=== PATIENT | female | born 1980 | race Caucasian/White ===

== ENCOUNTER 2016-12-11 12:35 | Emergency (ER) | payer MEDICAID ==
[2016-12-11 12:59] VITALS: BP 122/89; PULSE 88; RESP 20; TEMP 98.5; O2SAT 95
== END 2016-12-11 14:10 | disposition home or self-care (01) ==
LOC: C.ER 12:35
DX: S62.637A Displaced fracture of distal phalanx of left little finger, initial encounter for closed fracture (principal); W22.8XXA Striking against or struck by other objects, initial encounter

== ENCOUNTER 2018-06-22 08:26 | Inpatient (IN) | payer MEDICAID, OTHER ==
--- NOTE | 2018-06-22 09:21 | C.PDOC ---
History Of Present Illness 38 years old female with no PMHx presents to ED for complaints of sharp epigastric pain associated with nausea, vomiting (non bloody, non-bilious), and some diarrhea. Patient states she last vomited this morning. Denies fever, chill s, or any other complaints. Patient also reports symptoms began after she ate Blimpies. Time Seen by Provider: 06/22/18 08:52 Chief Complaint (Nursing): Abdominal Pain History Per: Patient History/Exam Limitations: no limitations Onset/Duration Of Symptoms: Days Current Symptoms Are (Timing): Still Present Location Of Pain/Discomfort: Epigastric Radiation Of Pain To:: None Quality Of Discomfort: Sharp Associated Symptoms: Nausea, Vomiting, Diarrhea. denies: Fever, Chills, Urinary Symptoms Exacerbating Factors: None Alleviating Factors: None Last Bowel Movement: Today Recent travel outside of the [place]: No Abnormal Vaginal Bleeding: No Past Medical History Reviewed: Historical Data, Nursing Documentation, Vital Signs Vital Signs: Last Vital Signs Temp 98 F 06/22/18 08:33 Pulse 71 06/22/18 08:33 Resp 20 06/22/18 08:33 BP 109/72 06/22/18 08:33 Pulse Ox 100 06/22/18 08:33 - Medical History PMH: No Chronic Diseases Surgical History: No Surg Hx Family History: States: Unknown Family Hx - Social History Hx Tobacco Use: No Hx Alcohol Use: No Hx Substance Use: No - Immunization History Hx Tetanus Toxoid Vaccination: No Hx Influenza Vaccination: No Hx Pneumococcal Vaccination: No Review Of Systems Constitutional: Negative for: Fever, Chills Cardiovascular: Negative for: Chest Pain Respiratory: Negative for: Shortness of Breath Gastrointestinal: Positive for: Nausea, Vomiting, Abdominal Pain (Epigastric ), Diarrhea. Negative for: Constipation Skin: Negative for: Rash Neurological: Negative for: Weakness, Numbness Physical Exam - Physical Exam Appears: Non-toxic, Other (Morbidly obese, uncomfortable) Skin: Normal Color, Warm, Dry, No Rash Head: Atraumatic, Normacephalic Eye(s): bilateral: Normal Inspection, PERRL, EOMI Oral Mucosa: Dry Neck: Normal ROM, Supple Chest: Symmetrical, No Tenderness Cardiovascular: Rhythm Regular, No Murmur Respiratory: Normal Breath Sounds, No Rales, No Rhonchi, No Wheezing Gastrointestinal/Abdominal: Soft, Tenderness (Epigastric RUQ ), Other (Positive Castellon's sign ) Back: Normal Inspection, No CVA Tenderness Extremity: Normal ROM Extremity: Bilateral: Atraumatic, Normal Color And Temperature, Normal ROM Pulses: Left Radial: Normal, Right Radial: Normal Neurological/Psych: Oriented x3, Normal Speech Gait: Steady ED Course And Treatment - Laboratory Results Result Diagrams: 06/22/18 11:10 06/22/18 11:10 O2 Sat by Pulse Oximetry: 100 (RA) Pulse Ox Interpretation: Normal - CT Scan/US Abdomen US Other Rad Studies (CT/US): Read By Radiologist, Radiology Report Reviewed CT/US Interpretation: Impression: Cholelithiasis and sludge in the gallbladder with associated positive sonographic Castellon's sign. Normal wall thickness. No gross wall edema. These findings are equivocal and may represent a possible cholecystitis. Clinical correlation. Hepatomegaly with increased echogenicity of the hepatic parenchymal cortex suggestive for fatty infiltration versus hepatic parenchymal disease. Clinical correlation. Dilated common bile duct measuring up to 1.2 centimeters. Clinical correlation. Pancreas not well visualized. Medical Decision Making Medical Decision Making: Plan: * Urinalysis Progress: 12:05: Patient currently pain-free and eating Doritos in ER. 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 Disposition Discussed With DrSelena: Marc Fontanez Doctor Will See Patient In The: Hospital - Disposition Disposition: HOSPITALIZED Disposition Time: 13:00 Condition: FAIR - Clinical Impression Clinical Impression: Gallstone pancreatitis - PA / CLINICAL CASE MANAGER / Resident Statement MD/DO has reviewed & agrees with the documentation as recorded. - Scribe Statement The provider has reviewed the documentation as recorded by the Joseiblara Fontana All medical record entries made by the Pedro were at my direction and personally dictated by me. I have reviewed the chart and agree that the record accurately reflects my personal performance of the history, physical exam, medical decision making, and the department course for this patient. I have also personally directed, reviewed, and agree with the discharge instructions and disposition.
[2018-06-22 11:15] LABS: BASO % 0.2 % (0.0-2.0); EOS % 0.2 % (0.0-4.0); HEMOGLOBIN 11.9 g/dL (11.0-16.0); LYMPH # 0.8 K/uL (1.0-4.3); LYMPH % 10.2 % (20.0-40.0); MEAN CELL VOLUME 79.7 fL (81.0-99.0); MEAN CORPUSCULAR HEMOGLOBIN 25.3 pg (27.0-31.0); MEAN CORPUSCULAR HGB CONC 31.8 g/dL (33.0-37.0); MEAN PLATELET VOLUME 7.9 fL (7.2-11.7); MONO # 0.5 K/uL (0.0-0.8); MONO % 5.7 % (0.0-10.0); NEUT # 6.6 K/uL (1.8-7.0); NEUT % 83.7 % (50.0-75.0); RBC 4.69 Mil/uL (3.80-5.20); RED CELL DISTRIBUTION WIDTH 14.5 % (11.5-14.5); WHITE BLOOD COUNT 7.9 K/uL (4.8-10.8)
[2018-06-22 11:32] LABS: ALB/GLOB RATIO 1.1 (1.0-2.1); ALBUMIN 4.4 g/dL (3.5-5.0); ALT/SGPT 148 U/L (9-52); AST/SGOT 218 U/L (14-36); BLOOD UREA NITROGEN 15 mg/dL (7-17); CALCIUM 9.3 mg/dl (8.6-10.4); GFR NON-AFRICAN AMERICAN > 60
[2018-06-22 12:01] LABS: LIPASE 35152 U/L (23-300)
--- NOTE | 2018-06-22 12:07 | US ---
Right upper quadrant abdominal ultrasound HISTORY: Right upper abdominal pain. COMPARISON: None available. TECHNIQUE: Real-time sonography was performed through the right upper quadrant of the abdomen. Findings: Liver: Enlarged measuring 18.3 centimeters in length. Increased echogenicity of the hepatic parenchymal cortex suggestive for fatty infiltration versus hepatic parenchymal disease. Clinical correlation. Cholelithiasis and sludge in the gallbladder. Normal wall thickness of 1.5 millimeters. Positive sonographic Castellon's sign. Common bile duct measures 1.2 centimeters, prominent. Limited visualization of the pancreas. Visualized aorta and IVC are preserved. Right kidney: 11.8 x 5.5 x 5.7 centimeters. No calculi or hydronephrosis. Impression: Cholelithiasis and sludge in the gallbladder with associated positive sonographic Castellon's sign. Normal wall thickness. No gross wall edema. These findings are equivocal and may represent a possible cholecystitis. Clinical correlation. Hepatomegaly with increased echogenicity of the hepatic parenchymal cortex suggestive for fatty infiltration versus hepatic parenchymal disease. Clinical correlation. Dilated common bile duct measuring up to 1.2 centimeters. Clinical correlation. Pancreas not well visualized.
[2018-06-22 12:41] LABS: SQUAMOUS EPITHIAL 10 /hpf (0-5); URINE BACTERIA RARE (<OCC); URINE BILIRUBIN NEGATIVE (NEGATIVE); URINE BLOOD NEGATIVE (NEGATIVE); URINE CLARITY Clear (Clear); URINE COLOR Amber (YELLOW); URINE GLUCOSE (UA) NORMAL (Normal); URINE LEUKOCYTE ESTERASE NEG Leu/uL (Negative); URINE PROTEIN NEGATIVE (NEGATIVE)
[2018-06-22] MEDS ORDERED: Sodium Chloride 0.9% 1,000 ML IV SCH ×3 (13:00→13:37)
--- NOTE | 2018-06-22 13:15 | CP.PCM.HP ---
<Josselyn Tomas E - Last Filed: 06/22/18 18:10> History of Present Illness - History of Present Illness History of Present Illness: CC: Epigastric Pain HPI: Patient is a 38 year old female with no past medical history, who presents to the ED with complaints of epigastric pain that started 4 days ago. Patient reports that the pain started for her right lower back/flank area/ RUQ radiating to the epigastric region. Patient describes that pain as a 8/10 sharp, pressure- like pain that is exacerbated with belching and greasy or fried food and mildly alleviated with vomiting. Patient states that she took Gas-X last week , which provided no relief. Patient admits to associated symptom of non-bilious, non-bloody vomit 3-4x per day for the past 3-4 days as well as chills and subjective fever that started yesterday. Patient admits to mild SOB and dizziness but denies chest pain, palpitations, diarrhea, hematochezia or urinary symptoms and recent travels Code Status: Full Code PMD: None PMHx: None PSHx: 2 (2002 and FHx: - Mother: 72, DM, HTN, HLD and Breast Ca - Father when patient was age 5 - Maternal Grandfather: Gastric Ca - Maternal Aunt: CVA Medications: None Allergies: Denies Social Hx: Lives with mother and two daughters. Works at [employer] in [place]. Denies any former or current use of tobacco, illicit drugs and ETOH 38 years old female with no PMHx presents to ED for complaints of sharp epigastric pain associated with nausea, vomiting (non bloody, non-bilious), and some diarrhea. Patient states she last vomited this morning. Denies fever, chills, or any other complaints. Patient also reports symptoms began after she ate Blimpies. Present on Admission - Present on Admission Any Indicators Present on Admission: No Review of Systems - Constitutional Constitutional: Chills, Fever. absent: Excessive Sweating, Headache, Increased Appetite, Weight Gain, Weight Loss, Weakness - EENT Eyes: absent: Blurred Vision, Change in Vision Ears: Dizziness - Cardiovascular Cardiovascular: Dyspnea. absent: Chest Pain, Edema, Palpitations, Pedal Edema, Radiating Pain - Respiratory Respiratory: Dyspnea. absent: Cough, Hemoptysis, Wheezing, Snoring - Gastrointestinal Gastrointestinal: Abdominal Pain, Nausea, Vomiting. absent: Change in Stool Character, Constipation, Diarrhea, Dysphagia, Fecal Incontinence, Hematemesis, Hematochezia, Loose Stools - Genitourinary Genitourinary: Flank Pain. absent: Difficulty Urinating, Hematuria, Pyuria - Reproductive: Female Reproductive:Female: Normal Menses - Musculoskeletal Musculoskeletal: absent: Back Pain - Neurological Neurological: Dizziness - Psychiatric Psychiatric: absent: Anxiety, Change in Appetite - Endocrine Endocrine: absent: Fatigue, Palpitations Past Patient History - Infectious Disease Hx of Infectious Diseases: None - Past Social History Smoking Status: Never Smoked - PSYCHIATRIC Hx Substance Use: No - SURGICAL HISTORY Hx Surgeries: No - ANESTHESIA Hx Anesthesia: No Hx Anesthesia Reactions: No Meds Allergies/Adverse Reactions: Allergies Allergy/AdvReac Type Severity Reaction Status Date / Time No Known Allergies Allergy Verified 06/22/18 08:36 Physical Exam - Constitutional Appears: Non-toxic, No Acute Distress - Head Exam Head Exam: ATRAUMATIC, NORMAL INSPECTION - Eye Exam Eye Exam: EOMI, Normal appearance, PERRL - ENT Exam ENT Exam: Mucous Membranes Moist - Respiratory Exam Respiratory Exam: Clear to Auscultation Bilateral, NORMAL BREATHING PATTERN. absent: Prolonged Expiratory Phase, Rhonchi, Wheezes, Respiratory Distress - Cardiovascular Exam Cardiovascular Exam: REGULAR RHYTHM, +S1, +S2. absent: Tachycardia - GI/Abdominal Exam GI & Abdominal Exam: Normal Bowel Sounds, Soft, Tenderness Additional comments: Epigastric tenderness Positive castellon sign - Extremities Exam Extremities exam: Positive for: normal inspection. Negative for: calf tenderness, pedal edema - Back Exam Back exam: CVA tenderness (R). absent: CVA tenderness (L) Additional comments: Mild R CVA tenderness - Psychiatric Exam Psychiatric exam: Normal Affect - Skin Skin Exam: Normal Color Results - Vital Signs Recent Vital Signs: Last Vital Signs Temp 97.6 F 06/22/18 13:08 Pulse 64 06/22/18 13:08 Resp 18 06/22/18 13:08 BP 115/75 06/22/18 13:08 Pulse Ox 97 06/22/18 13:08 - Labs Result Diagrams: 06/22/18 11:10 06/22/18 11:10 Labs: Laboratory Results - last 24 hr 06/22/18 06/22/18 06/22/18 11:10 11:10 12:17 WBC 7.9 RBC 4.69 Hgb 11.9 Hct 37.4 MCV 79.7 L MCH 25.3 L MCHC 31.8 L RDW 14.5 Plt Count 275 MPV 7.9 Neut % (Auto) 83.7 H Lymph % (Auto) 10.2 L [place] % (Auto) 5.7 Eos % (Auto) 0.2 Baso % (Auto) 0.2 Neut # (Auto) 6.6 Lymph # (Auto) 0.8 L [place] # (Auto) 0.5 Eos # (Auto) 0.0 Baso # (Auto) 0.0 Sodium 138 Potassium 4.1 Chloride 106 Carbon Dioxide 25 Anion Gap 12 BUN 15 Creatinine 0.6 L Est GFR ( Amer) > 60 Est GFR (Non-Af Amer) > 60 Random Glucose 150 H Calcium 9.3 Total Bilirubin 2.3 H AST 218 H ALT 148 H D Alkaline Phosphatase 184 H Total Protein 8.5 H Albumin 4.4 Globulin 4.0 H Albumin/Globulin Ratio 1.1 Lipase 93251 H Urine Color Ruma Urine Clarity Clear Urine pH 5.0 Ur Specific [place] 1.016 Urine Protein Negative Urine Glucose (UA) Normal Urine Ketones Negative Urine Blood Negative Urine Nitrate Negative Urine Bilirubin Negative Urine Urobilinogen 4.0 H Ur Leukocyte Esterase Neg Urine WBC (Auto) 4 Urine RBC (Auto) 1 Ur Squamous Epith Cells 10 H Urine Bacteria Rare Assessment & Plan (1) Gallstone pancreatitis Assessment and Plan: Consultations: GI: Dr. Almanza---> Help appreciated * Management as per recommendation General Surgery, Dr. Pierce---> Help appreciated * Management as per recommendation Imaging: * Abdomen US: Cholelithiasis and sludge in the gallbladder with associated positive sonographic Castellon's sign. Normal wall thickness. No gross wall edema. These findings are equivocal and may represent a possible cholecystitis. Clinical correlation. Hepatomegaly with increased echogenicity of the hepatic parenchymal cortex suggestive for fatty infiltration versus hepatic parenchymal disease. Clinical correlation.Dilated common bile duct measuring up to 1.2 centimeters. Clinical correlation. Pancreas not well visualized. * Abdomen/Pelvis CT: Prominent liver with diffuse fatty infiltration. Distended gallbladder with possible sludge. Prominently thickened and heterogeneous pancreas with adjacent peripancreatic fat stranding suggestive for acute pa ncreatitis. Right kidney: 4 millimeter lower pole nonobstructive calculus. Left Kidney: 3 millimeter upper pole nonobstructive calculus. Mild fullness of the left renal collecting system. Prominence of the left adnexa measuring up to 4.4 centimeters. Labs on admission: -Total Bili: 2.3 -AST/ALT: 218/148 -Alkaline Phosphate: 184 -Lipase: 35, 152 Management: * NPO expect for meds * NS @ 150mls/hr * Toradol 15mg IV Q6H PRN (Moderate Pain) * Toradol 30mg IV Q6H PRN (Severe Pain) * Zosyn 3.375gm Q6H * Lactobacillius 1 tab PO BID Status: Acute (2) Prophylactic measure Assessment and Plan: GI: Protonix 40mg IV daily DVT: SCDs, Chemical anticoagulation in anticipation for any surgical intervention All plans and management discussed with Dr. Elder Status: Acute <Juan Elder - Last Filed: 06/22/18 18:56> Results - Vital Signs Recent Vital Signs: Last Vital Signs Temp 97.6 F 06/22/18 13:08 Pulse 80 06/22/18 15:54 Resp 18 06/22/18 15:54 BP 127/77 06/22/18 15:54 Pulse Ox 100 06/22/18 18:53 - Labs Result Diagrams: 06/22/18 11:10 06/22/18 11:10 Labs: Laboratory Results - last 24 hr 06/22/18 06/22/18 06/22/18 11:10 11:10 12:17 WBC 7.9 RBC 4.69 Hgb 11.9 Hct 37.4 MCV 79.7 L MCH 25.3 L MCHC 31.8 L RDW 14.5 Plt Count 275 MPV 7.9 Neut % (Auto) 83.7 H Lymph % (Auto) 10.2 L [place] % (Auto) 5.7 Eos % (Auto) 0.2 Baso % (Auto) 0.2 Neut # (Auto) 6.6 Lymph # (Auto) 0.8 L [place] # (Auto) 0.5 Eos # (Auto) 0.0 Baso # (Auto) 0.0 Sodium 138 Potassium 4.1 Chloride 106 Carbon Dioxide 25 Anion Gap 12 BUN 15 Creatinine 0.6 L Est GFR ( Amer) > 60 Est GFR (Non-Af Amer) > 60 Random Glucose 150 H Calcium 9.3 Total Bilirubin 2.3 H AST 218 H ALT 148 H D Alkaline Phosphatase 184 H Total Protein 8.5 H Albumin 4.4 Globulin 4.0 H Albumin/Globulin Ratio 1.1 Lipase 58519 H Urine Color Ruma Urine Clarity Clear Urine pH 5.0 Ur Specific [place] 1.016 Urine Protein Negative Urine Glucose (UA) Normal Urine Ketones Negative Urine Blood Negative Urine Nitrate Negative Urine Bilirubin Negative Urine Urobilinogen 4.0 H Ur Leukocyte Esterase Neg Urine WBC (Auto) 4 Urine RBC (Auto) 1 Ur Squamous Epith Cells 10 H Urine Bacteria Rare Attending/Attestation - Attestation I have personally seen and examined this patient.: Yes I have fully participated in the care of the patient.: Yes I have reviewed all pertinent clinical information: Yes Notes (Text): 06/22/18 18:54 Medical attending: Patient was seen and examined by me. Agree with the above note by the resident The patient was seen in ER Hallway Bed 1 The patient was not in acute distress Pain was controlled. We discussed the elavated LFTs as well as elevated lipase values CT scan of the abdomen and pelvis pending at this moment The patient will need GI eval and surgery evaluation Explained to patient she may require MRCP and then ERCP She will be NPO, pain medications, and IVF Juan Elder
[2018-06-22] MEDS ORDERED: Sodium Chloride 0.9% 1,000 ML ONE (14:48)
[2018-06-22] MEDS ORDERED: Piperacillin/Tazobact 3.375 gm 100 ML IVPB ONE (14:48)
[2018-06-22] MEDS: Piperacill/Tazo 3.375gm in Dex 3.375 GM/50 ML BAG IVPB SCH ×2 (14:57→22:47)
--- NOTE | 2018-06-22 16:53 | CT ---
CT abdomen and pelvis HISTORY: Epigastric pain. Comparison: None available. Technique: Multiple contiguous axial images were performed through the abdomen and pelvis without the use of intravenous contrast. Subsequently, sagittal and coronal reformatted images were obtained. This CT exam was performed using one or more of the following dose reduction techniques: Automated exposure control, adjustment of the mA and/or kV according to patient size, and/or use of iterative reconstruction technique. Findings: Scattered atelectasis and consolidation at the bases. No pleural or pericardial effusion. Prominent liver with diffuse fatty infiltration. Distended gallbladder with possible sludge. Spleen is preserved. Adrenal glands are preserved. Prominently thickened and heterogeneous pancreas with adjacent peripancreatic fat stranding suggestive for acute pancreatitis. Upper abdominal bowel grossly preserved. Right kidney: 4 millimeter lower pole nonobstructive calculus. Left Kidney: 3 millimeter upper pole nonobstructive calculus. Mild fullness of the left renal collecting system. Urinary bladder is preserved. Prominence of the left adnexa measuring up to 4.4 centimeters. Underdistended left hemicolon. Fecal retention in the right mohini colon. Appendix is grossly preserved. Shotty para-aortic and mesenteric lymph nodes. Degenerative changes in the spine. Impression: Findings concerning for acute pancreatitis. Prominence of the left adnexa measuring up to 4.4 centimeters. Additional findings as above.
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
[2018-06-22 19:48] LABS: INR 1.2; PROTHROMBIN TIME 12.6 SECONDS (9.7-12.2)
[2018-06-22] MEDS: Sodium Chloride 0.9% 1,000 ML IV SCH (22:10)
[2018-06-23 05:16] LABS: BASO % 0.5 % (0.0-2.0); EOS # 0.1 K/uL (0.0-0.7); EOS % 1.6 % (0.0-4.0); HEMOGLOBIN 10.7 g/dL (11.0-16.0); LYMPH # 1.6 K/uL (1.0-4.3); LYMPH % 18.2 % (20.0-40.0); MEAN CORPUSCULAR HEMOGLOBIN 25.4 pg (27.0-31.0); MEAN CORPUSCULAR HGB CONC 31.8 g/dL (33.0-37.0); MEAN PLATELET VOLUME 8.1 fL (7.2-11.7); MONO # 0.6 K/uL (0.0-0.8); MONO % 7.1 % (0.0-10.0); NEUT # 6.2 K/uL (1.8-7.0); NEUT % 72.6 % (50.0-75.0); RBC 4.21 Mil/uL (3.80-5.20); RED CELL DISTRIBUTION WIDTH 14.6 % (11.5-14.5); WHITE BLOOD COUNT 8.5 K/uL (4.8-10.8)
[2018-06-23 05:29] LABS: ALB/GLOB RATIO 1.1 (1.0-2.1); ALBUMIN 3.5 g/dL (3.5-5.0); ALT/SGPT 103 U/L (9-52); AST/SGOT 101 U/L (14-36); BLOOD UREA NITROGEN 16 mg/dL (7-17); GFR NON-AFRICAN AMERICAN > 60
[2018-06-23] MEDS: Sodium Chloride 0.9% 1,000 ML IV SCH ×4 (06:15→19:35)
[2018-06-23] MEDS: Piperacill/Tazo 3.375gm in Dex 3.375 GM/50 ML BAG IVPB SCH ×5 (06:16→23:50)
[2018-06-23] MEDS ORDERED: Piperacillin/Tazobact 3.375 gm 100 ML IVPB ONE (06:24)
--- NOTE | 2018-06-23 08:45 | CP.PCM.PN ---
<Rani Whitehead - Last Filed: 06/23/18 19:26> Subjective - Date & Time of Evaluation Date of Evaluation: 06/23/18 Time of Evaluation: 08:43 - Subjective Subjective: PGY-1 Rani Whitehead D.O. Medicine progress note for Dr. Dawson's service: Patient was seen and examined this morning. She says that her abdominal pain is better, now 7/10. She feels bloated. She denies nausea and vomiting but has increased belching. Denies diarrhea and constipation. Objective - Vital Signs/Intake and Output Vital Signs (last 24 hours): Temp Pulse Resp BP Pulse Ox 98.4 F 79 18 116/68 95 06/23/18 03:16 06/23/18 03:16 06/23/18 03:16 06/23/18 03:16 06/23/18 03:16 - Medications Medications: Current Medications Sodium Chloride (Sodium Chloride 0.9%) 1,000 mls @ 200 mls/hr IV .Q5H [facility] Last Admin: 06/23/18 06:15 Dose: 200 mls/hr Piperacillin Sod/Tazobactam Sod (Zosyn 3.375 Gm Iv Premix) 3.375 gm in 50 mls @ 100 mls/hr IVPB Q6H [facility]; Protocol Last Admin: 06/23/18 06:31 Dose: 100 mls/hr Ketorolac Tromethamine (Toradol) 15 mg IVP Q6H PRN PRN Reason: Pain, moderate (4-7) Last Admin: 06/22/18 22:34 Dose: 15 mg Ketorolac Tromethamine (Toradol) 30 mg IVP Q6H PRN PRN Reason: Pain, severe (8-10) Last Admin: 06/22/18 16:03 Dose: 30 mg Lactobacillus Acidophilus (Bacid Acidophilus) 1 cap PO BID [facility]NAZ - Labs Labs: 06/23/18 05:09 06/23/18 05:09 PT 12.6 SECONDS (9.7-12.2) H 06/22/18 19:36 INR 1.2 06/22/18 19:36 APTT 27 SECONDS (21-34) 06/22/18 19:36 - Constitutional Appears: Non-toxic, No Acute Distress - Head Exam Head Exam: ATRAUMATIC, NORMAL INSPECTION - Eye Exam Eye Exam: EOMI, Normal appearance - ENT Exam ENT Exam: Mucous Membranes Moist - Neck Exam Neck Exam: Normal Inspection - Respiratory Exam Respiratory Exam: Clear to Ausculation Bilateral, NORMAL BREATHING PATTERN - Cardiovascular Exam Cardiovascular Exam: RRR, +S1, +S2 - GI/Abdominal Exam GI & Abdominal Exam: Soft, Tenderness (diffuse). absent: Distended Additional comments: obese abdomen positive Castellon's sign - Extremities Exam Extremities Exam: Normal Inspection - Back Exam Back Exam: NORMAL INSPECTION - Neurological Exam Neurological Exam: Alert, Awake, CN II-XII Intact, Normal Gait, Oriented x3 - Psychiatric Exam Psychiatric exam: Normal Affect, Normal Mood - Skin Skin Exam: Dry, Normal Color, Warm Assessment and Plan - Assessment and Plan (Free Text) Assessment: Patient is a 38 year old female who presented with epigastric pain. Found to have gallstone pancreatitis. Plan for cholecystectomy when pancreatitis improves. Plan: Gallstone pancreatitis - Abd US: Cholelithiasis and sludge in the gallbladder with associated positive sonographic Castellon's sign. Normal wall thickness. No gross wall edema. Hepat omegaly with increased echogenicity of the hepatic parenchymal cortex suggestive for fatty infiltration versus hepatic parenchymal disease. Dilated common bile duct measuring up to 1.2 centimeters. - CT A/P: Prominent liver with diffuse fatty infiltration. Distended gallbladder with possible sludge. Prominently thickened and heterogeneous pancreas with adjacent peripancreatic fat stranding suggestive for acute pancreatitis. Right kidney: 4 millimeter lower pole nonobstructive calculus. Left Kidney: 3 millimeter upper pole nonobstructive calculus. Mild fullness of the left renal collecting system. Prominence of the left adnexa measuring up to 4.4 centimeters. - MRCP: CBD 1.1 cm, no filling defect, cholelithiasis - Lipase 35,152 - LDH 664 - Tbili normalized (2.3-->1) - Transaminitis improving - Lipids wnl - TSH, free T4 wnl - A1c 5.8 - Clear liquids - Toradol 15-30 mg IV Q6H - Lactobacillus BID - NS @ 200 - Zosyn 3.375 g IV Q6H- started 06/22 - Cholecystectemy pending - Counseled on diet and exercise for morbid obesity - GI consulted (Archie) - Surgery consulted (Stan) Ppx: VTE: SCDs GI: PTX 40 mg IV daily Code status: full code Case discussed with attending, Dr. Dawson. <Kristal Dawson V - Last Filed: 06/24/18 09:00> Objective - Vital Signs/Intake and Output Vital Signs (last 24 hours): Temp Pulse Resp BP Pulse Ox 97.9 F 84 20 101/63 95 06/24/18 00:15 06/24/18 00:00 06/24/18 00:00 06/24/18 00:00 06/24/18 04:00 Intake and Output: 06/24/18 06/24/18 06:59 18:59 Intake Total 3550 Balance 3550 - Medications Medications: Current Medications Sodium Chloride (Sodium Chloride 0.9%) 1,000 mls @ 200 mls/hr IV .Q5H [facility] Last Admin: 06/24/18 08:08 Dose: 200 mls/hr Ketorolac Tromethamine (Toradol) 15 mg IVP Q6H PRN PRN Reason: Pain, moderate (4-7) Last Admin: 06/22/18 22:34 Dose: 15 mg Ketorolac Tromethamine (Toradol) 30 mg IVP Q6H PRN PRN Reason: Pain, severe (8-10) Last Admin: 06/22/18 16:03 Dose: 30 mg Lactobacillus Acidophilus (Bacid Acidophilus) 1 cap PO BID [facility] Last Admin: 06/23/18 17:55 Dose: 1 cap Polyethylene Glycol (Miralax) 17 gm PO BID [facility] Stop: 06/24/18 18:01 - Labs Labs: 06/24/18 08:40 06/23/18 05:09 PT 12.6 SECONDS (9.7-12.2) H 06/22/18 19:36 INR 1.2 06/22/18 19:36 APTT 27 SECONDS (21-34) 06/22/18 19:36 Attending/Attestation - Attestation I have personally seen and examined this patient.: Yes I have fully participated in the care of the patient.: Yes I have reviewed all pertinent clinical information, including history, physical exam and plan: Yes Notes (Text): This is a 38-year-old female history of morbid obesity who comes in for abdominal pain worsened with eating fatty foods including fifth 20s. Patient seen in the hallway awaiting for bed upstairs since. Code purple status. GI and general surgery on board. Patient noted total bili and LFTs are slowly improving. Discussed with GI has recommended for MRCP to make sure there is no other stones blocking. I had a private discussion with the patient regards to diet modifications the need for exercise regiment to improve her overall health given that she is morbidly obese as well as because she is aware of her risk factors for diabetes and cholesterol problems which will further complicate her future. We will currently place the patient on clear liquids per GI continue to monitor LFTs and bili. Follow-up the MRCP and then follow-up with general surge ry in terms of possible time for further surgical intervention. Assessment and plan 1. Gallstone pancreatitis 2. Choledocholithiasis 3. Cholelithiasis 4. Hyperbilirubinemia Assessment/plan * GI doctor note on board * Surgery Dr. Pierce on board * Abd US: Cholelithiasis and sludge in the gallbladder with associated positive sonographic Castellon's sign. Normal wall thickness. No gross wall edema. Hepatomegaly with increased echogenicity of the hepatic parenchymal cortex suggestive for fatty infiltration versus hepatic parenchymal disease. Dilated common bile duct measuring up to 1.2 centimeters. * CT A/P: Prominent liver with diffuse fatty infiltration. Distended gallbladder with possible sludge. Prominently thickened and heterogeneous pancreas with adjacent peripancreatic fat stranding suggestive for acute pancreatitis. Right kidney: 4 millimeter lower pole nonobstructive calculus. Left Kidney: 3 millimeter upper pole nonobstructive calculus. Mild fullness of the left renal collecting system. Prominence of the left adnexa measuring up to 4.4 centimeters. * MRCP: CBD 1.1 cm, no filling defect, cholelithiasis * On admission * Lipase 35,152 * LDH 664 * Tbili normalized (2.3-->1) * Transaminitis improving * Lipids wnl * TSH, free T4 wnl * Zosyn 3.375g IV Q6H active since June 22, 2018 * Toradol as needed for pain * IV fluids 5. Morbid obesity * Check A1c, thyroid, lipid panel, * Counseled on diet and exercise modification she is aware that further weight gain will place additional risk in the future. Patient recommended for strict diet regimen and she is aware that she could potentially be a candidate for gastric bypass and be treated by diet modification exercise under the physician supervised visits failed. 6. Impaired glucose tolerance * A1c 5.8 * Advocated diet and exercise modification * Will need repeat A1c in 1 year to prevent over diabetes 7. Prophylactic measure * SCDs * Protonix 40 mg IV daily
--- NOTE | 2018-06-23 10:36 | CP.PCM.CON ---
<AnelstevenObey holder - Last Filed: 06/23/18 12:50> History of Present Illness - History of Present Illness History of Present Illness: GI Fellow PGY4, consult note. Laxmi Rubio is a very pleasant 38F with no previous medical history presenting with acute abdominal pain. The pain started Saturday, waking her up from sleep. The pain was moderate at that time radiating from the back to the front. She had never had pain like this before. The pain progressively worsened Saturday and she came to the hospital. Work-up revealed Afeb, HDs, elevated LFTs, lipase. U/S and CT showed gallstones, acute pancreatitis with dilated CBD 12mm. Fortunately, patient is feeling better today and bilirubin has normalized. She is requesting food at this time. No vomiting since arrival to the hospital. She has no history of gallstones. She is making good urine output, less dark. HCT and BUN downtrending. PMHx - none PSHx - FMHx - Stomach cancer in his 70s SocHx - Denies etoh, smoking. 12pt ROS completed and negative except for above. Past Patient History - Infectious Disease Hx of Infectious Diseases: None - Past Social History Smoking Status: Never Smoked - PSYCHIATRIC Hx Substance Use: No - SURGICAL HISTORY Hx Surgeries: No - ANESTHESIA Hx Anesthesia: No Hx Anesthesia Reactions: No Meds Allergies/Adverse Reactions: Allergies Allergy/AdvReac Type Severity Reaction Status Date / Time shrimp Allergy ITCHING Verified 06/23/18 13:22 - Medications Medications: Current Medications Sodium Chloride (Sodium Chloride 0.9%) 1,000 mls @ 200 mls/hr IV .Q5H [facility] Last Admin: 06/23/18 06:15 Dose: 200 mls/hr Piperacillin Sod/Tazobactam Sod (Zosyn 3.375 Gm Iv Premix) 3.375 gm in 50 mls @ 100 mls/hr IVPB Q6H [facility]; Protocol Last Admin: 06/23/18 06:31 Dose: 100 mls/hr Potassium Chloride (Potassium Chloride 20 Meq/100 Ml) 20 meq in 100 mls @ 50 mls/hr IVPB ONCE ONE Stop: 06/23/18 10:44 Ketorolac Tromethamine (Toradol) 15 mg IVP Q6H PRN PRN Reason: Pain, moderate (4-7) Last Admin: 06/22/18 22:34 Dose: 15 mg Ketorolac Tromethamine (Toradol) 30 mg IVP Q6H PRN PRN Reason: Pain, severe (8-10) Last Admin: 06/22/18 16:03 Dose: 30 mg Lactobacillus Acidophilus (Bacid Acidophilus) 1 cap PO BID [facility] Physical Exam - Constitutional Appears: Non-toxic, No Acute Distress - Head Exam Head Exam: ATRAUMATIC, NORMAL INSPECTION - Eye Exam Eye Exam: EOMI, Normal appearance - ENT Exam ENT Exam: Mucous Membranes Moist, Normal Exam - Respiratory Exam Respiratory Exam: Clear to Auscultation Bilateral, NORMAL BREATHING PATTERN - Cardiovascular Exam Cardiovascular Exam: REGULAR RHYTHM, +S1, +S2 - GI/Abdominal Exam GI & Abdominal Exam: Normal Bowel Sounds, Soft, Tenderness. absent: Organomegaly - Extremities Exam Extremities exam: Positive for: normal inspection. Negative for: pedal edema - Neurological Exam Neurological exam: Alert, CN II-XII Intact, Oriented x3 - Psychiatric Exam Psychiatric exam: Normal Affect, Normal Mood - Skin Skin Exam: Normal Color, Warm Results - Vital Signs Recent Vital Signs: Last Vital Signs Temp 99.2 F 06/23/18 08:10 Pulse 70 06/23/18 08:10 Resp 18 06/23/18 08:10 BP 126/82 06/23/18 08:10 Pulse Ox 97 06/23/18 08:10 - Labs Result Diagrams: 06/23/18 05:09 06/23/18 05:09 Labs: Laboratory Results - last 24 hr 06/22/18 06/22/18 06/22/18 11:10 11:10 12:17 WBC 7.9 RBC 4.69 Hgb 11.9 Hct 37.4 MCV 79.7 L MCH 25.3 L MCHC 31.8 L RDW 14.5 Plt Count 275 MPV 7.9 Neut % (Auto) 83.7 H Lymph % (Auto) 10.2 L [place] % (Auto) 5.7 Eos % (Auto) 0.2 Baso % (Auto) 0.2 Neut # (Auto) 6.6 Lymph # (Auto) 0.8 L [place] # (Auto) 0.5 Eos # (Auto) 0.0 Baso # (Auto) 0.0 PT INR APTT Sodium 138 Potassium 4.1 Chloride 106 Carbon Dioxide 25 Anion Gap 12 BUN 15 Creatinine 0.6 L Est GFR ( Amer) > 60 Est GFR (Non-Af Amer) > 60 Random Glucose 150 H Calcium 9.3 Phosphorus Magnesium Total Bilirubin 2.3 H AST 218 H ALT 148 H D Alkaline Phosphatase 184 H Total Protein 8.5 H Albumin 4.4 Globulin 4.0 H Albumin/Globulin Ratio 1.1 Lipase 80674 H Urine Color [place] Urine Clarity Clear Urine pH 5.0 Ur Specific [place] 1.016 Urine Protein Negative Urine Glucose (UA) Normal Urine Ketones Negative Urine Blood Negative Urine Nitrate Negative Urine Bilirubin Negative Urine Urobilinogen 4.0 H Ur Leukocyte Esterase Neg Urine WBC (Auto) 4 Urine RBC (Auto) 1 Ur Squamous Epith Cells 10 H Urine Bacteria Rare 06/22/18 06/23/18 06/23/18 19:36 05:09 05:09 WBC 8.5 RBC 4.21 Hgb 10.7 L Hct 33.7 L MCV 80.0 L MCH 25.4 L MCHC 31.8 L RDW 14.6 H Plt Count 240 MPV 8.1 Neut % (Auto) 72.6 Lymph % (Auto) 18.2 L [place] % (Auto) 7.1 Eos % (Auto) 1.6 Baso % (Auto) 0.5 Neut # (Auto) 6.2 Lymph # (Auto) 1.6 [place] # (Auto) 0.6 Eos # (Auto) 0.1 Baso # (Auto) 0.0 PT 12.6 H INR 1.2 APTT 27 Sodium 138 Potassium 3.4 L Chloride 110 H Carbon Dioxide 21 L Anion Gap 10 BUN 16 Creatinine 0.5 L Est GFR ( Amer) > 60 Est GFR (Non-Af Amer) > 60 Random Glucose 88 D Calcium 8.0 L Phosphorus 3.5 Magnesium 1.8 Total Bilirubin 1.0 AST 101 H D ALT 103 H D Alkaline Phosphatase 159 H Total Protein 6.8 Albumin 3.5 D Globulin 3.3 Albumin/Globulin Ratio 1.1 Lipase Urine Color Urine Clarity Urine pH Ur Specific [place] Urine Protein Urine Glucose (UA) Urine Ketones Urine Blood Urine Nitrate Urine Bilirubin Urine Urobilinogen Ur Leukocyte Esterase Urine WBC (Auto) Urine RBC (Auto) Ur Squamous Epith Cells Urine Bacteria Assessment & Plan - Assessment and Plan (Free Text) Assessment: #Gallstone pancreatitis #Obesity #Hepatosteatosis PLAN: -CT and U/S reviewed showing Gallstone, acute pancreatitis, dilated CBD. -Continue IVF, prefer LR over NS. BUN trending down. Avoid fluid overload. -Hyperbilirubinemia resolved. No need for ERCP at this time. -Recommend cholecystectomy after pancreatitis treated, preferably before discharge. -If pain improving, and nausea/vomting resolved, would recommend starting CLD and advance to a low fat diet as tolerated. Defer to surgery in setting of po ssible surgical procedure. -Recommend discontinuing Antibiotics. No signs of infection. Patient is i mproving. - Date & Time Date: 06/23/18 Time: 10:39 <ArchieUrban Y - Last Filed: 06/23/18 15:09> Meds - Medications Medications: Current Medications Sodium Chloride (Sodium Chloride 0.9%) 1,000 mls @ 200 mls/hr IV .Q5H [facility] Last Admin: 06/23/18 06:15 Dose: 200 mls/hr Piperacillin Sod/Tazobactam Sod (Zosyn 3.375 Gm Iv Premix) 3.375 gm in 50 mls @ 100 mls/hr IVPB Q6H [facility]; Protocol Last Admin: 06/23/18 13:10 Dose: 100 mls/hr Ketorolac Tromethamine (Toradol) 15 mg IVP Q6H PRN PRN Reason: Pain, moderate (4-7) Last Admin: 06/22/18 22:34 Dose: 15 mg Ketorolac Tromethamine (Toradol) 30 mg IVP Q6H PRN PRN Reason: Pain, severe (8-10) Last Admin: 06/22/18 16:03 Dose: 30 mg Lactobacillus Acidophilus (Bacid Acidophilus) 1 cap PO BID SH[facility]NAZ Last Admin: 06/23/18 11:49 Dose: 1 cap Results - Vital Signs Recent Vital Signs: Last Vital Signs Temp 97.6 F 06/23/18 12:26 Pulse 69 06/23/18 12:26 Resp 20 06/23/18 12:26 BP 149/84 06/23/18 12:26 Pulse Ox 99 06/23/18 12:26 - Labs Result Diagrams: 06/23/18 05:09 06/23/18 05:09 Labs: Laboratory Results - last 24 hr 06/22/18 06/23/18 06/23/18 19:36 05:09 05:09 WBC 8.5 RBC 4.21 Hgb 10.7 L Hct 33.7 L MCV 80.0 L MCH 25.4 L MCHC 31.8 L RDW 14.6 H Plt Count 240 MPV 8.1 Neut % (Auto) 72.6 Lymph % (Auto) 18.2 L [place] % (Auto) 7.1 Eos % (Auto) 1.6 Baso % (Auto) 0.5 Neut # (Auto) 6.2 Lymph # (Auto) 1.6 [place] # (Auto) 0.6 Eos # (Auto) 0.1 Baso # (Auto) 0.0 PT 12.6 H INR 1.2 APTT 27 Sodium 138 Potassium 3.4 L Chloride 110 H Carbon Dioxide 21 L Anion Gap 10 BUN 16 Creatinine 0.5 L Est GFR ( Amer) > 60 Est GFR (Non-Af Amer) > 60 Random Glucose 88 D Hemoglobin A1c Calcium 8.0 L Phosphorus 3.5 Magnesium 1.8 Total Bilirubin 1.0 AST 101 H D ALT 103 H D Alkaline Phosphatase 159 H Total Protein 6.8 Albumin 3.5 D Globulin 3.3 Albumin/Globulin Ratio 1.1 Triglycerides Cholesterol LDL Cholesterol Direct HDL Cholesterol Free T4 TSH 3rd Generation 06/23/18 06/23/18 06/23/18 14:00 14:00 14:00 WBC RBC Hgb Hct MCV MCH MCHC RDW Plt Count MPV Neut % (Auto) Lymph % (Auto) [place] % (Auto) Eos % (Auto) Baso % (Auto) Neut # (Auto) Lymph # (Auto) [place] # (Auto) Eos # (Auto) Baso # (Auto) PT INR APTT Sodium Potassium Chloride Carbon Dioxide Anion Gap BUN Creatinine Est GFR ( Amer) Est GFR (Non-Af Amer) Random Glucose Hemoglobin A1c 5.8 Calcium Phosphorus Magnesium Total Bilirubin AST ALT Alkaline Phosphatase Total Protein Albumin Globulin Albumin/Globulin Ratio Triglycerides 51 Cholesterol 183 LDL Cholesterol Direct 85 HDL Cholesterol 79 H Free T4 1.21 TSH 3rd Generation 1.21 Attending/Attestation - Attestation I have personally seen and examined this patient.: Yes I have fully participated in the care of the patient.: Yes I have reviewed all pertinent clinical information: Yes Notes (Text): 06/23/18 15:05 I have seen and examined patient with GI fellow. Agree with above documentation with the following additions. In brief, this is a 38 year old female with history of obesity (BMI 51), who presents to hospital with complaint of abdom inal pain which began 4 days ago. She describes sudden onset sharp epigastric pain that radiated to back, 10/10 intensity which woke her from sleep. She reports associated nausea but denies vomiting, diarrhea, fever/chills, weight loss, jaundice, pruritis, or change in bowel habits. No prior endoscopic evaluation. Obesity Abdominal pain, acute pancreatitis US and CT imaging reviewed by me showing cholelithiasis, dilated CBD - Clear liquid diet as tolerated - Obtain MRCP to rule out choledocholithiasis - LFTs trending down, continue to monitor - IVF hydration, pain control - Follow up surgical recommendations regarding timing of potential cholecystectomy - Will continue to monitor patient clinical course
[2018-06-23] MEDS: Lactobacillus Acidophilus 500 MU Cap PO SCH ×2 (11:49→17:55)
--- NOTE | 2018-06-23 14:41 | CP.PCM.PN ---
Subjective - Date & Time of Evaluation Date of Evaluation: 06/23/18 Time of Evaluation: 07:15 - Subjective Subjective: General Surgery Pt seen and examined this AM. Pt was feeling better but still had pain. No nausea or emesis, no other complaints. Objective - Vital Signs/Intake and Output Vital Signs (last 24 hours): Temp Pulse Resp BP Pulse Ox 97.6 F 69 20 149/84 99 06/23/18 12:26 06/23/18 12:26 06/23/18 12:26 06/23/18 12:26 06/23/18 12:26 - Medications Medications: Current Medications Sodium Chloride (Sodium Chloride 0.9%) 1,000 mls @ 200 mls/hr IV .Q5H [facility] Last Admin: 06/23/18 06:15 Dose: 200 mls/hr Piperacillin Sod/Tazobactam Sod (Zosyn 3.375 Gm Iv Premix) 3.375 gm in 50 mls @ 100 mls/hr IVPB Q6H [facility]; Protocol Last Admin: 06/23/18 13:10 Dose: 100 mls/hr Ketorolac Tromethamine (Toradol) 15 mg IVP Q6H PRN PRN Reason: Pain, moderate (4-7) Last Admin: 06/22/18 22:34 Dose: 15 mg Ketorolac Tromethamine (Toradol) 30 mg IVP Q6H PRN PRN Reason: Pain, severe (8-10) Last Admin: 06/22/18 16:03 Dose: 30 mg Lactobacillus Acidophilus (Bacid Acidophilus) 1 cap PO BID SHAHNAZ Last Admin: 06/23/18 11:49 Dose: 1 cap - Labs Labs: 06/23/18 05:09 06/23/18 05:09 PT 12.6 SECONDS (9.7-12.2) H 06/22/18 19:36 INR 1.2 06/22/18 19:36 APTT 27 SECONDS (21-34) 06/22/18 19:36 - Constitutional Appears: Non-toxic, No Acute Distress - Head Exam Head Exam: ATRAUMATIC, NORMOCEPHALIC - Eye Exam Eye Exam: EOMI. absent: Scleral icterus - ENT Exam ENT Exam: Mucous Membranes Moist - Respiratory Exam Respiratory Exam: NORMAL BREATHING PATTERN. absent: Respiratory Distress - GI/Abdominal Exam GI & Abdominal Exam: Soft, Tenderness (in epigastrum). absent: Distended, Firm, Guarding, Rigid, Rebound - Neurological Exam Neurological Exam: Alert, Awake, Oriented x3 - Skin Skin Exam: Dry, Warm Assessment and Plan - Assessment and Plan (Free Text) Assessment: 38F with gallstone pancreatitis Plan: - IVF hydration - AM Tbili trending down - Cholecystectomy this admission once pancreatitis resolved - D/W Dr. Stan Grier PGY4
[2018-06-23] MEDS ORDERED: Pneumococcal 23-Valent Vaccine IM ONE (16:36)
[2018-06-23] MEDS ORDERED: Influenza Vaccine 60 mcg/0.5 mL SYR (4YR UP) IM ONE (16:38)
--- NOTE | 2018-06-23 17:30 | MRI ---
MRCP Indication: pancreatitis Technique: Multiplanar, multisequence MR images of the abdomen were obtained, including heavily T2 weighted MRCP images of the biliary system. Rotating maximum intensity projection images of the biliary system were generated. A total of images were submitted for review. Comparison: CT of the abdomen and pelvis without IV contrast performed 06/22/18, limited abdominal ultrasound performed 06/22/18 Findings: The liver appears grossly unremarkable on this noncontrast examination. Cholelithiasis. There is no intrahepatic biliary ductal dilatation. The common bile duct appears dilated measuring approximately 11 mm. No focal filling defect identified. The pancreatic duct appears within normal limits of caliber. No filling defects are seen in the common bile duct or pancreatic duct. Mild pancreatic prominence may be related to edema/pancreatitis. The limited visualized noncontrast adrenal glands, kidneys, and spleen appear grossly unremarkable. No bulky abdominal lymphadenopathy is seen. Trace bilateral pleural effusions. Bibasilar atelectasis. No acute osseous abnormality detected. Impression: Dilated common bile duct measuring approximately 11 mm. No focal filling defect identified. Cholelithiasis. Mild pancreatic prominence may be related to edema/pancreatitis. Recommend correlation with amylase and lipase. Trace bilateral pleural effusions. Bibasilar atelectasis.
[2018-06-24] MEDS: Sodium Chloride 0.9% 1,000 ML IV SCH ×3 (01:55→14:01)
--- NOTE | 2018-06-24 06:56 | CP.PCM.PN ---
<Rani Whitehead - Last Filed: 06/24/18 06:56> Subjective - Date & Time of Evaluation Date of Evaluation: 06/24/18 Time of Evaluation: 06:56 - Subjective Subjective: PGY-1 Rani Whitehead D.O. Medicine progress note for Dr. Dawson's service: Patient was seen and examined this morning. Objective - Vital Signs/Intake and Output Vital Signs (last 24 hours): Temp Pulse Resp BP Pulse Ox 97.9 F 84 20 101/63 95 06/24/18 00:15 06/24/18 00:00 06/24/18 00:00 06/24/18 00:00 06/24/18 04:00 Intake and Output: 06/23/18 06/24/18 18:59 06:59 Intake Total 880 1800 Balance 880 1800 - Medications Medications: Current Medications Sodium Chloride (Sodium Chloride 0.9%) 1,000 mls @ 200 mls/hr IV .Q5H [facility] Last Admin: 06/24/18 01:55 Dose: 200 mls/hr Ketorolac Tromethamine (Toradol) 15 mg IVP Q6H PRN PRN Reason: Pain, moderate (4-7) Last Admin: 06/22/18 22:34 Dose: 15 mg Ketorolac Tromethamine (Toradol) 30 mg IVP Q6H PRN PRN Reason: Pain, severe (8-10) Last Admin: 06/22/18 16:03 Dose: 30 mg Lactobacillus Acidophilus (Bacid Acidophilus) 1 cap PO BID [facility] Last Admin: 06/23/18 17:55 Dose: 1 cap - Labs Labs: 06/23/18 05:09 06/23/18 05:09 PT 12.6 SECONDS (9.7-12.2) H 06/22/18 19:36 INR 1.2 06/22/18 19:36 APTT 27 SECONDS (21-34) 06/22/18 19:36 Assessment and Plan - Assessment and Plan (Free Text) Assessment: Patient is a 38 year old female who presented with epigastric pain. Found to have gallstone pancreatitis. Plan for cholecystectomy when pancreatitis improves. Plan: Gallstone pancreatitis - Abd US: Cholelithiasis and sludge in the gallbladder with associated positive sonographic Castellon's sign. Normal wall thickness. No gross wall edema. Hepatomegaly with increased echogenicity of the hepatic parenchymal cortex suggestive for fatty infiltration versus hepatic parenchymal disease. Dilated common bile duct measuring up to 1.2 centimeters. - CT A/P: Prominent liver with diffuse fatty infiltration. Distended gallbladder with possible sludge. Prominently thickened and heterogeneous pancreas with adjacent peripancreatic fat stranding suggestive for acute pancreatitis. Right kidney: 4 millimeter lower pole nonobstructive calculus. Left Kidney: 3 millimeter upper pole nonobstructive calculus. Mild fullness of the left renal collecting system. Prominence of the left adnexa measuring up to 4.4 centimeters. - MRCP: CBD 1.1 cm, no filling defect, cholelithiasis - Lipase 35,152 - LDH 664 - Tbili normalized (2.3-->1) - Transaminitis improving - Lipids wnl - TSH, free T4 wnl - A1c 5.8 - Clear liquids - Toradol 15-30 mg IV Q6H - Lactobacillus BID - NS @ 200 - Zosyn 3.375 g IV Q6H- started 06/22 - Cholecystectemy pending - Counseled on diet and exercise for morbid obesity - GI consulted (Archie) - Surgery consulted (Stan) Ppx: VTE: SCDs GI: PTX 40 mg IV daily Code status: full code Case discussed with attending, Dr. Dawson. <Kristal Dawson V - Last Filed: 06/24/18 18:46> Objective - Vital Signs/Intake and Output Vital Signs (last 24 hours): Temp Pulse Resp BP Pulse Ox 97.9 F 84 20 101/63 95 06/24/18 00:15 06/24/18 00:00 06/24/18 00:00 06/24/18 00:00 06/24/18 04:00 Intake and Output: 06/24/18 06/24/18 06:59 18:59 Intake Total 3550 Balance 3550 - Medications Medications: Current Medications Sodium Chloride (Sodium Chloride 0.9%) 1,000 mls @ 200 mls/hr IV .Q5H [facility] Last Admin: 06/24/18 08:08 Dose: 200 mls/hr Ketorolac Tromethamine (Toradol) 15 mg IVP Q6H PRN PRN Reason: Pain, moderate (4-7) Last Admin: 06/22/18 22:34 Dose: 15 mg Ketorolac Tromethamine (Toradol) 30 mg IVP Q6H PRN PRN Reason: Pain, severe (8-10) Last Admin: 06/22/18 16:03 Dose: 30 mg Lactobacillus Acidophilus (Bacid Acidophilus) 1 cap PO BID [facility] Last Admin: 06/23/18 17:55 Dose: 1 cap Polyethylene Glycol (Miralax) 17 gm PO BID [facility] Stop: 06/24/18 18:01 - Labs Labs: 06/24/18 08:40 06/23/18 05:09 PT 12.6 SECONDS (9.7-12.2) H 06/22/18 19:36 INR 1.2 06/22/18 19:36 APTT 27 SECONDS (21-34) 06/22/18 19:36 Attending/Attestation - Attestation I have personally seen and examined this patient.: Yes I have fully participated in the care of the patient.: Yes I have reviewed all pertinent clinical information, including history, physical exam and plan: Yes Notes (Text): This is a 38-year-old female history of morbid obesity who comes in for abdominal pain worsened with eating fatty foods including fifth 20s. Patient seen in the hallway awaiting for bed upstairs since. Code purple status. GI and general surgery on board. Patient seen and examined today during rounds patient noted abdominal pain is about 6 out of 10 on pain scale patient did have a bowel movement this morning. GI has advance diet recommend for her to continue IV fluids and surgical intervention. Surgery is planned for a lap chang for tomorrow. Chest x-ray noted for lower lobe infiltrates and/or atelectasis I likely think is atelectasis given the patient is over morbid obese habitus. Patient started on incentive spirometry and albuterol treatments just to optimize prior to the OR tomorrow patient is not a smoker. EKG shows normal sinus rhythm. Patient is a medium risk individual for medium risk intervention. Patient has no history of congestive heart failure, no prior CO, no hypertension history no diabetes and no smoking history. Surgery and anesthesia to describes risk and benefits of the procedure prior to the OR respectively.. Preoperative, intraoperative, postoperative management per surgery. Also to note patient has been up prophylactically on Zosyn since June 22, 2018 for coverage. Assessment and plan 1. Gallstone pancreatitis 2. Choledocholithiasis 3. Cholelithiasis 4. Hyperbilirubinemia Assessment/plan * GI doctor note on board * Surgery Dr. Pierce on board * Abd US: Cholelithiasis and sludge in the gallbladder with associated positive sonographic Castellon's sign. Normal wall thickness. No gross wall edema. Hepatomegaly with increased echogenicity of the hepatic parenchymal cortex suggestive for fatty infiltration versus hepatic parenchymal disease. Dilated common bile duct measuring up to 1.2 centimeters. * CT A/P: Prominent liver with diffuse fatty infiltration. Distended gallbladder with possible sludge. Prominently thickened and heterogeneous pancreas with adjacent peripancreatic fat stranding suggestive for acute pancreatitis. Right kidney: 4 millimeter lower pole nonobstructive calculus. Left Kidney: 3 millimeter upper pole nonobstructive calculus. Mild fullness of the left renal collecting system. Prominence of the left adnexa measuring up to 4.4 centimeters. * MRCP: Dilated common bile duct measuring approximately 11 mm. No focal filling defect identified. Cholelithiasis. Mild pancreatic prominence may be related to edema/pancreatitis. Increased bilateral pleural effusions. Bibasilar atelectasis. * On admission * Lipase 35,152 * LDH 664 * Tbili normalized (2.3-->1) * Transaminitis improving * Lipids wnl * TSH, free T4 wnl * Zosyn 3.375g IV Q6H active since June 22, 2018 * Toradol as needed for pain * IV fluids 5. Morbid obesity * Check A1c, thyroid, lipid panel, * Counseled on diet and exercise modification she is aware that further weight gain will place additional risk in the future. Patient recommended for strict diet regimen and she is aware that she could potentially be a candidate for gastric bypass and be treated by diet modification exercise under the physician supervised visits failed. 6. Impaired glucose tolerance * A1c 5.8 * Advocated diet and exercise modification * Will need repeat A1c in 1 year to prevent over diabetes 7. Atelectasis * Patient started on incentive spirometry prior to the OR. * Patient was started on duo nebs to optimize lung prior to the OR. * Patient has been prophylactically on Zosyn since June 22 * Reviewed chest x-ray likely atelectasis given patient has morbid obesity. Reviewed ABG noted for mild hypoxia will put in for a 2 L of oxygen however oxygen saturations about 95. Note patient is not a smoker. 8. Prophylactic measure * SCDs * Protonix 40 mg IV daily * Gentle IV hydration. Disposition: Patient for surgical intervention for lap chang. Patient is a medium risk individual for medium risk procedure. Surgery and anesthesia to describe risks and benefits associated with seizure prior to the OR. Preoperative/intraoperative/postoperative management per surgery. Patient will be n.p.o. after midnight. Anticoagulation is not on board patient has been on SCDs prior to surgical intervention.
--- NOTE | 2018-06-24 07:23 | CP.PCM.PN ---
<Obey Hemphill - Last Filed: 06/24/18 08:22> Subjective - Date & Time of Evaluation Date of Evaluation: 06/24/18 Time of Evaluation: 07:20 - Subjective Subjective: Laxmi states her abdominal pain continues to improve and is only mild at this time. She was able to tolerate a CLD and is requesting more substantial food. No fevers or acute overnight events. Objective - Vital Signs/Intake and Output Vital Signs (last 24 hours): Temp Pulse Resp BP Pulse Ox 97.9 F 84 20 101/63 95 06/24/18 00:15 06/24/18 00:00 06/24/18 00:00 06/24/18 00:00 06/24/18 04:00 Intake and Output: 06/24/18 06/24/18 06:59 18:59 Intake Total 3550 Balance 3550 - Medications Medications: Current Medications Sodium Chloride (Sodium Chloride 0.9%) 1,000 mls @ 200 mls/hr IV .Q5H [facility] Last Admin: 06/24/18 01:55 Dose: 200 mls/hr Ketorolac Tromethamine (Toradol) 15 mg IVP Q6H PRN PRN Reason: Pain, moderate (4-7) Last Admin: 06/22/18 22:34 Dose: 15 mg Ketorolac Tromethamine (Toradol) 30 mg IVP Q6H PRN PRN Reason: Pain, severe (8-10) Last Admin: 06/22/18 16:03 Dose: 30 mg Lactobacillus Acidophilus (Bacid Acidophilus) 1 cap PO BID [facility] Last Admin: 06/23/18 17:55 Dose: 1 cap - Labs Labs: 06/23/18 05:09 06/23/18 05:09 PT 12.6 SECONDS (9.7-12.2) H 06/22/18 19:36 INR 1.2 06/22/18 19:36 APTT 27 SECONDS (21-34) 06/22/18 19:36 - Constitutional Appears: Non-toxic, No Acute Distress - Head Exam Head Exam: ATRAUMATIC, NORMAL INSPECTION - Eye Exam Eye Exam: EOMI, Normal appearance - Respiratory Exam Respiratory Exam: Clear to Ausculation Bilateral, NORMAL BREATHING PATTERN - Cardiovascular Exam Cardiovascular Exam: REGULAR RHYTHM, +S1, +S2 - GI/Abdominal Exam GI & Abdominal Exam: Soft, Tenderness, Normal Bowel Sounds Additional comments: Tenderness mild to deep palpation of epigastric area. - Extremities Exam Extremities Exam: Normal Inspection. absent: Pedal Edema - Neurological Exam Neurological Exam: Alert, Awake, Oriented x3 - Psychiatric Exam Psychiatric exam: Normal Affect, Normal Mood - Skin Skin Exam: Normal Color, Warm Assessment and Plan - Assessment and Plan (Free Text) Assessment: #Gallstone pancreatitis #Obesity #Hepatosteatosis PLAN: -CT and U/S reviewed showing Gallstone, acute pancreatitis, dilated CBD. -MRCP reviewed. CBD is 11mm, however there is no focal defect. -If labs continue to improve and tolerating diet, recommend weaning off IVF. -Recommend cholecystectomy with IOC after pancreatitis treated, preferably before discharge. -OK to start low fat diet. If unable to tolerate (N/V/pain), recommend NPO. -CMP pending Case discussed with Dr. Almanza. See attestation <Urban Almanza Y - Last Filed: 06/24/18 09:21> Objective - Vital Signs/Intake and Output Vital Signs (last 24 hours): Temp Pulse Resp BP Pulse Ox 97.6 F 133 H 20 107/69 96 06/24/18 09:07 06/24/18 09:07 06/24/18 09:07 06/24/18 09:07 06/24/18 09:07 Intake and Output: 06/24/18 06/24/18 06:59 18:59 Intake Total 3550 Balance 3550 - Medications Medications: Current Medications Sodium Chloride (Sodium Chloride 0.9%) 1,000 mls @ 200 mls/hr IV .Q5H [facility] Last Admin: 06/24/18 08:08 Dose: 200 mls/hr Ketorolac Tromethamine (Toradol) 15 mg IVP Q6H PRN PRN Reason: Pain, moderate (4-7) Last Admin: 06/22/18 22:34 Dose: 15 mg Ketorolac Tromethamine (Toradol) 30 mg IVP Q6H PRN PRN Reason: Pain, severe (8-10) Last Admin: 06/22/18 16:03 Dose: 30 mg Lactobacillus Acidophilus (Bacid Acidophilus) 1 cap PO BID [facility] Last Admin: 06/24/18 09:08 Dose: 1 cap Polyethylene Glycol (Miralax) 17 gm PO BID [facility] Stop: 06/24/18 18:01 Last Admin: 06/24/18 09:08 Dose: 17 gm - Labs Labs: 06/24/18 08:40 06/24/18 08:40 PT 12.6 SECONDS (9.7-12.2) H 06/22/18 19:36 INR 1.2 06/22/18 19:36 APTT 27 SECONDS (21-34) 06/22/18 19:36 Attending/Attestation - Attestation I have personally seen and examined this patient.: Yes I have fully participated in the care of the patient.: Yes I have reviewed all pertinent clinical information, including history, physical exam and plan: Yes Notes (Text): 06/24/18 09:19 I have seen and examined patient with GI fellow. No acute events overnight, she continues to endorse LUQ abdominal pain, 7/10 intensity but otherwise denies nausea, vomiting, fever/chills. Tolerating PO liquids without difficulty. Review of vitals from today are normal. Obesity Abdominal pain Cholelithiasis Pancreatitis Transaminitis - MRCP reviewed by me showing dilated CBD without focal filling defects, no intrahepatic dilation - Liquid diet as tolerated - Continue with IVF hydration, pain control - LFTs trending down, continue to monitor - Follow up surgical recommendations regarding timing of cholecystectomy - No further planned GI intervention, will sign off case. Please reconsult as necessary, thank you.
[2018-06-24] MEDS ORDERED: Bisacodyl 5mg EC Tab PO ONE (08:45)
[2018-06-24 08:47] LABS: HEMOGLOBIN 10.5 g/dL (11.0-16.0); MEAN CELL VOLUME 80.3 fL (81.0-99.0); MEAN CORPUSCULAR HGB CONC 32.3 g/dL (33.0-37.0); RBC 4.04 Mil/uL (3.80-5.20); RED CELL DISTRIBUTION WIDTH 14.4 % (11.5-14.5)
--- NOTE | 2018-06-24 09:03 | CP.PCM.PN ---
Subjective - Date & Time of Evaluation Date of Evaluation: 06/24/18 Time of Evaluation: 06:30 - Subjective Subjective: Surgery: Dr. Pierce Pt seen and examined. No acute overnight events. States she feels better and was able to tolerate clear liquids yesterday. Pt denies any more episodes of nausea/vomiting. Denies fevers/chills. Objective - Vital Signs/Intake and Output Vital Signs (last 24 hours): Temp Pulse Resp BP Pulse Ox 97.9 F 84 20 101/63 95 06/24/18 00:15 06/24/18 00:00 06/24/18 00:00 06/24/18 00:00 06/24/18 04:00 Intake and Output: 06/24/18 06/24/18 06:59 18:59 Intake Total 3550 Balance 3550 - Medications Medications: Current Medications Sodium Chloride (Sodium Chloride 0.9%) 1,000 mls @ 200 mls/hr IV .Q5H [facility] Last Admin: 06/24/18 08:08 Dose: 200 mls/hr Ketorolac Tromethamine (Toradol) 15 mg IVP Q6H PRN PRN Reason: Pain, moderate (4-7) Last Admin: 06/22/18 22:34 Dose: 15 mg Ketorolac Tromethamine (Toradol) 30 mg IVP Q6H PRN PRN Reason: Pain, severe (8-10) Last Admin: 06/22/18 16:03 Dose: 30 mg Lactobacillus Acidophilus (Bacid Acidophilus) 1 cap PO BID [facility] Last Admin: 06/23/18 17:55 Dose: 1 cap Polyethylene Glycol (Miralax) 17 gm PO BID [facility] Stop: 06/24/18 18:01 - Labs Labs: 06/24/18 08:40 06/23/18 05:09 PT 12.6 SECONDS (9.7-12.2) H 06/22/18 19:36 INR 1.2 06/22/18 19:36 APTT 27 SECONDS (21-34) 06/22/18 19:36 - Constitutional Appears: Well, No Acute Distress - Head Exam Head Exam: ATRAUMATIC, NORMOCEPHALIC - Eye Exam Eye Exam: Normal appearance - ENT Exam ENT Exam: Mucous Membranes Moist - Respiratory Exam Respiratory Exam: NORMAL BREATHING PATTERN - Cardiovascular Exam Cardiovascular Exam: RRR - GI/Abdominal Exam GI & Abdominal Exam: Soft. absent: Distended, Guarding, Rebound - Extremities Exam Extremities Exam: absent: Tenderness - Neurological Exam Neurological Exam: Alert, Awake, Oriented x3 - Skin Skin Exam: Dry, Warm Assessment and Plan - Assessment and Plan (Free Text) Assessment: 38F with gallstone pancreatitis; resolving Plan: - plan for lap chang tomorrow - keep NPO past midnight - d/w Dr. Stan Quan
[2018-06-24] MEDS: Lactobacillus Acidophilus 500 MU Cap PO SCH ×2 (09:08→18:26)
[2018-06-24 09:17] LABS: GFR NON-AFRICAN AMERICAN > 60
[2018-06-24 09:18] LABS: ALT/SGPT 88 U/L (9-52); AST/SGOT 50 U/L (14-36); CALCIUM 8.3 mg/dl (8.6-10.4)
[2018-06-24 09:19] LABS: ALBUMIN 3.8 g/dL (3.5-5.0)
[2018-06-24 09:26] LABS: ALB/GLOB RATIO 1.1 (1.0-2.1)
[2018-06-24 09:47] LABS: BLOOD UREA NITROGEN 9 mg/dL (7-17)
[2018-06-24] MEDS ORDERED: POLYETHYLENE GLYCOL 3350 17 GM/Dose PACKET PO SCH (10:00)
[2018-06-24] MEDS ORDERED: Sodium Chloride 0.9% 1,000 ML IV SCH (11:12)
--- NOTE | 2018-06-24 12:53 | RAD ---
Date of service: 06/24/2018 HISTORY: pre-op COMPARISON: 06/22/2018 CT abdomen and pelvis FINDINGS: LUNGS: Atelectasis, volume loss right lower lobe. Similar less pronounced changes left lower lobe. PLEURA: No significant pleural effusion identified, no pneumothorax apparent. CARDIOVASCULAR: No atherosclerotic calcification present Normal. OSSEOUS STRUCTURES: No significant abnormalities. VISUALIZED UPPER ABDOMEN: Normal. OTHER FINDINGS: None. IMPRESSION: Lower lobe infiltrates/atelectasis.
[2018-06-24] MEDS ORDERED: Potassium Chloride 20 mEq ER Tab PO ONE (14:00)
[2018-06-24] MEDS: Albuterol-Ipratrop 3 mg / 0.5 (3 ml) UD INH SCH ×2 (14:00→19:38)
[2018-06-24 16:28] LABS: ABG ALLEN TEST P; ARTERIAL BLOOD GAS HCO3 18.8 mmol/L (21-28); ARTERIAL BLOOD GAS HEMOGLOBIN 8.5 g/dL (11.7-17.4); ARTERIAL BLOOD GAS O2 SAT 98.2 % (95-98); ARTERIAL BLOOD GAS PCO2 25 mm/Hg (35-45); ARTERIAL BLOOD GAS PH 7.41 (7.35-7.45); ARTERIAL BLOOD GAS PO2 68 mm/Hg (80-100); ARTERIAL BLOOD GAS TCO2 16.6 mmol/L (22-28)
[2018-06-24] MEDS: Piperacill/Tazo 3.375gm in Dex 3.375 GM/50 ML BAG IVPB SCH (20:19)
[2018-06-25] MEDS: Albuterol-Ipratrop 3 mg / 0.5 (3 ml) UD INH SCH ×4 (01:32→20:00)
[2018-06-25] MEDS: Piperacill/Tazo 3.375gm in Dex 3.375 GM/50 ML BAG IVPB SCH ×3 (02:45→20:55)
--- NOTE | 2018-06-25 07:11 | CP.PCM.PN ---
<Rani Whitehead - Last Filed: 06/25/18 10:56> Subjective - Date & Time of Evaluation Date of Evaluation: 06/25/18 Time of Evaluation: 07:08 - Subjective Subjective: PGY-1 Rani Whitehead D.O. Medicine progress note for Dr. Dawson's service: Patient was seen and examined this morning. She has been NPO since midnight for lap chang today. She says her abdominal pain is much better, severity 1/10. She denies nausea and vomiting. Belching has subsided. Denies fevers/chills or chest pain. Objective - Vital Signs/Intake and Output Vital Signs (last 24 hours): Temp Pulse Resp BP Pulse Ox 98.2 F 83 20 123/84 100 06/25/18 00:00 06/25/18 00:00 06/25/18 00:00 06/25/18 00:00 06/25/18 00:00 Intake and Output: 06/25/18 06/25/18 06:59 18:59 Intake Total 1050 Balance 1050 - Medications Medications: Current Medications Albuterol/Ipratropium (Duoneb 3 Mg/0.5 Mg (3 Ml) Ud) 3 ml INH RQ6 [facility] Last Admin: 06/25/18 01:32 Dose: Not Given Sodium Chloride (Sodium Chloride 0.9%) 1,000 mls @ 50 mls/hr IV .Q20H [facility] Last Admin: 06/24/18 14:01 Dose: 50 mls/hr Piperacillin Sod/Tazobactam Sod (Zosyn 3.375 Gm Iv Premix) 3.375 gm in 50 mls @ 100 mls/hr IVPB Q6H [facility]; Protocol Last Admin: 06/25/18 02:45 Dose: 100 mls/hr Ketorolac Tromethamine (Toradol) 15 mg IVP Q6H PRN PRN Reason: Pain, moderate (4-7) Last Admin: 06/22/18 22:34 Dose: 15 mg Ketorolac Tromethamine (Toradol) 30 mg IVP Q6H PRN PRN Reason: Pain, severe (8-10) Last Admin: 06/22/18 16:03 Dose: 30 mg Lactobacillus Acidophilus (Bacid Acidophilus) 1 cap PO BID [facility] Last Admin: 06/24/18 18:26 Dose: 1 cap Pantoprazole Sodium (Protonix Inj) 40 mg IVP DAILY [facility] Last Admin: 06/24/18 14:50 Dose: 40 mg - Labs Labs: 06/24/18 08:40 06/24/18 08:40 PT 12.6 SECONDS (9.7-12.2) H 06/22/18 19:36 INR 1.2 06/22/18 19:36 APTT 27 SECONDS (21-34) 06/22/18 19:36 - Constitutional Appears: Non-toxic, No Acute Distress - Head Exam Head Exam: ATRAUMATIC, NORMAL INSPECTION - Eye Exam Eye Exam: EOMI, Normal appearance - ENT Exam ENT Exam: Mucous Membranes Moist - Neck Exam Neck Exam: Normal Inspection - Respiratory Exam Respiratory Exam: Clear to Ausculation Bilateral, NORMAL BREATHING PATTERN. absent: Respiratory Distress - Cardiovascular Exam Cardiovascular Exam: RRR, +S1, +S2 - GI/Abdominal Exam GI & Abdominal Exam: Soft. absent: Distended, Tenderness, Rebound Additional comments: obese negative Castellon's sign - Extremities Exam Extremities Exam: Normal Inspection. absent: Tenderness - Neurological Exam Neurological Exam: Alert, Awake, CN II-XII Intact, Normal Gait, Oriented x3 - Psychiatric Exam Psychiatric exam: Normal Affect, Normal Mood - Skin Skin Exam: Dry, Normal Color, Warm Assessment and Plan - Assessment and Plan (Free Text) Assessment: Patient is a 38 year old female who presented with epigastric pain. Found to have gallstone pancreatitis, cholecystitis, and choledocolithiasis. Plan for cholecystectomy today 06/25. Plan: Gallstone pancreatitis, Cholelithiasis, Choledocolithiasis - [place]'s score on admission 1, [place]'s at 48 hrs 1 - Abd US: Cholelithiasis and sludge in the gallbladder with associated positive sonographic Castellon's sign. Normal wall thickness. No gross wall edema. Hepatomegaly with increased echogenicity of the hepatic parenchymal cortex suggestive for fatty infiltration versus hepatic parenchymal disease. Dilated common bile duct measuring up to 1.2 centimeters. - CT A/P: Prominent liver with diffuse fatty infiltration. Distended gallbladder with possible sludge. Prominently thickened and heterogeneous pancreas with adjacent peripancreatic fat stranding suggestive for acute pancreatitis. Right kidney: 4 millimeter lower pole nonobstructive calculus. Left Kidney: 3 terrie meter upper pole nonobstructive calculus. Mild fullness of the left renal collecting system. Prominence of the left adnexa measuring up to 4.4 centimeters. - MRCP: CBD 1.1 cm, no filling defect, cholelithiasis - Lipase 35,152 - LDH 664 - Tbili normalized (2.3-->0.9) - Transaminitis resolved - Lipids wnl - TSH, free T4 wnl - NPO - Duoneb Q6H (pre-op CXR showed basilar atelectasis) - Incentive spirometer Q1H - Lactobacillus BID - NS @ 50 - Zosyn 3.375 g IV Q6H- started 06/22 - Counseled on diet and exercise for morbid obesity - GI consulted (Archie) - Surgery consulted (Stan)- lap chang today 06/25 Impaired glucose tolerance, Morbid obesity - A1c 5.8 - Lipid panel wnl - Counseled on diet and exercise for morbid obesity Ppx: VTE: SCDs GI: PTX 40 mg IV daily Code status: full code Case discussed with attending, Dr. Dawson. <Kristal Dawson V - Last Filed: 06/25/18 19:30> Objective - Vital Signs/Intake and Output Vital Signs (last 24 hours): Temp Pulse Resp BP Pulse Ox 98.2 F 82 20 110/69 94 L 06/25/18 16:25 06/25/18 16:25 06/25/18 16:25 06/25/18 16:25 06/25/18 16:25 Intake and Output: 06/25/18 06/26/18 18:59 06:59 Intake Total 500 Balance 500 - Medications Medications: Current Medications Albuterol/Ipratropium (Duoneb 3 Mg/0.5 Mg (3 Ml) Ud) 3 ml INH RQ6 [facility] Last Admin: 06/25/18 13:32 Dose: Not Given Hydromorphone HCl (Dilaudid) 0.5 mg IVP Q6H PRN PRN Reason: Pain, severe (8-10) Sodium Chloride (Sodium Chloride 0.9%) 1,000 mls @ 50 mls/hr IV .Q20H [facility] Last Admin: 06/25/18 09:45 Dose: Not Given Piperacillin Sod/Tazobactam Sod (Zosyn 3.375 Gm Iv Premix) 3.375 gm in 50 mls @ 100 mls/hr IVPB Q6H [facility]; Protocol Last Admin: 06/25/18 08:20 Dose: 100 mls/hr Lactobacillus Acidophilus (Bacid Acidophilus) 1 cap PO BID [facility] Last Admin: 06/25/18 18:57 Dose: 1 cap Oxycodone/Acetaminophen (Percocet 5/325 Mg Tab) 1 tab PO Q4H PRN PRN Reason: Pain, moderate (4-7) Stop: 06/28/18 15:11 Pantoprazole Sodium (Protonix Inj) 40 mg IVP DAILY [facility] Last Admin: 06/25/18 09:38 Dose: 40 mg - Labs Labs: 06/25/18 08:18 06/25/18 08:18 PT 12.6 SECONDS (9.7-12.2) H 06/22/18 19:36 INR 1.2 06/22/18 19:36 APTT 27 SECONDS (21-34) 06/22/18 19:36 Attending/Attestation - Attestation I have personally seen and examined this patient.: Yes I have fully participated in the care of the patient.: Yes I have reviewed all pertinent clinical information, including history, physical exam and plan: Yes Notes (Text): This is a 38-year-old female history of morbid obesity admitted for gallstone pancreatitis, cholelithiasis, associated transminitis. GI has signed off. Patient seen today prior to OR. Patient reports pain is improved. She has used both the nebulizer treatment and incentive spirometry. Patient's electrolyte repleted prior to OR. Patient is aware to use her incentive spirometry aggressively post OR to prevent pneumonia and atelectasis. Patient started on incentive spirometry and albuterol treatments just to optimize prior to the OR today. Patient is a medium risk individual for medium risk intervention. Patient has no history of congestive heart failure, no prior SC, no hypertension history no diabetes and no smoking history. Surgery and anesthesia to describes risk and benefits of the procedure prior to the OR respectively. Preoperative, intraoperative, postoperative management per surgery. Also to note patient has been up prophylactically on Zosyn since June 22, 2018 for coverage. Assessment and plan 1. Gallstone pancreatitis 2. Choledocholithiasis 3. Cholelithiasis 4. Hyperbilirubinemia Assessment/plan * GI has signed off * Surgery Dr. Pierce on board * Abd US: Cholelithiasis and sludge in the gallbladder with associated positive sonographic Castellon's sign. Normal wall thickness. No gross wall edema. Hepatomegaly with increased echogenicity of the hepatic parenchymal cortex suggestive for fatty infiltration versus hepatic parenchymal disease. Dilated common bile duct measuring up to 1.2 centimeters. * CT A/P: Prominent liver with diffuse fatty infiltration. Distended gallbladder with possible sludge. Prominently thickened and heterogeneous pancreas with adjacent peripancreatic fat stranding suggestive for acute pancreatitis. Right kidney: 4 millimeter lower pole nonobstructive calculus. Left Kidney: 3 millimeter upper pole nonobstructive calculus. Mild fullness of the left renal collecting system. Prominence of the left adnexa measuring up to 4.4 centimeters. * MRCP: Dilated common bile duct measuring approximately 11 mm. No focal filling defect identified. Cholelithiasis. Mild pancreatic prominence may be related to edema/pancreatitis. Increased bilateral pleural effusions. Bibasilar atelectasis. * On admission * Lipase 35,152 * LDH 664 * Tbili normalized (2.3-->1) * Transaminitis improving * Lipids wnl * TSH, free T4 wnl * Zosyn 3.375g IV Q6H active since June 22, 2018 * Toradol as needed for pain * IV fluids * Patient is scheduled for lap chang with surgery today. * preoperative/intraoperative/postoperative management per surgery 5. Morbid obesity * Counseled on diet and exercise modification she is aware that further weight gain will place additional risk in the future. Patient recommended for strict diet regimen and she is aware that she could potentially be a candidate for g astric bypass and be treated by diet modification exercise under the physician supervised visits failed. 6. Impaired glucose tolerance * A1c 5.8 * Advocated diet and exercise modification * Will need repeat A1c in 1 year to prevent over diabetes 7. Atelectasis * Patient started on incentive spirometry prior to the OR. * Patient was started on duo nebs to optimize lung prior to the OR. * Patient has been prophylactically on Zosyn since June 22 * Reviewed chest x-ray likely atelectasis given patient has morbid obesity. Reviewed ABG noted for mild hypoxia will put in for a 2 L of oxygen however oxygen saturations about 95. Note patient is not a smoker. 8. Prophylactic measure * SCDs * Protonix 40 mg IV daily * Gentle IV hydration. Disposition: Patient for surgical intervention for lap chang. Patient is a medium risk individual for medium risk procedure. Surgery and anesthesia to describe risks and benefits associated with seizure prior to the OR. Preoperative/intraoperative/postoperative management per surgery.
[2018-06-25 08:29] LABS: HEMOGLOBIN 10.6 g/dL (11.0-16.0); MEAN CELL VOLUME 79.8 fL (81.0-99.0); MEAN CORPUSCULAR HEMOGLOBIN 26.1 pg (27.0-31.0); MEAN CORPUSCULAR HGB CONC 32.7 g/dL (33.0-37.0); MEAN PLATELET VOLUME 8.4 fL (7.2-11.7); RBC 4.07 Mil/uL (3.80-5.20); RED CELL DISTRIBUTION WIDTH 14.4 % (11.5-14.5); WHITE BLOOD COUNT 9.3 K/uL (4.8-10.8)
[2018-06-25 08:47] LABS: ALB/GLOB RATIO 0.9 (1.0-2.1); ALBUMIN 3.4 g/dL (3.5-5.0); ALT/SGPT 68 U/L (9-52); AST/SGOT 31 U/L (14-36); BLOOD UREA NITROGEN 4 mg/dL (7-17); CALCIUM 8.4 mg/dl (8.6-10.4); GFR NON-AFRICAN AMERICAN > 60
[2018-06-25] MEDS: Lactobacillus Acidophilus 500 MU Cap PO SCH ×2 (09:39→18:57)
[2018-06-25] MEDS: Sodium Chloride 0.9% 1,000 ML IV SCH (09:45)
[2018-06-25] MEDS ORDERED: Iohexol 240 (50 ml) ONE (12:34)
[2018-06-25] MEDS ORDERED: Lactated Ringer's 1,000 ML IV ONE ×2 (12:55)
[2018-06-25] MEDS ORDERED: Propofol 10 mg/ml Inj (20 ML) ONE (13:02)
[2018-06-25] MEDS ORDERED: Midazolam 2 MG/2 ML VIAL ONE (13:02)
[2018-06-25] MEDS ORDERED: HYDROmorphone 0.5 mg/0.5 ml ISec IVP PRN ×2 (13:13→15:24)
[2018-06-25] MEDS ORDERED: Piperacillin/Tazobact 3.375 gm 100 ML IVPB ONE (13:15)
[2018-06-25] MEDS ORDERED: Succinylcholine Chloride 20 mg/ml Syr (5 ml) IV ONE (15:03)
[2018-06-25] MEDS ORDERED: Rocuronium 10 mg/ml (5 ml) ONE (15:03)
[2018-06-25] MEDS ORDERED: Neostigmine 1:1000 (1 mg/ml) Inj ONE (15:04)
[2018-06-25] MEDS ORDERED: Oxycodone/Acetaminophen 5/325 mg Tab PO PRN (15:10)
--- NOTE | 2018-06-25 15:14 | PCM.SURG1 ---
Surgeon's Initial Post Op Note - Surgeon's Notes Surgeon: Dr. Pierce Brim Greaser Operator: Dr. Quan PGY-3, Ten Hinojosa MS3 Type of Anesthesia: General Endo Pre-Operative Diagnosis: Gallstone Pancreatitis Operative Findings: See operative report Post-Operative Diagnosis: Same Operation Performed: Laparoscopic Cholecystectomy Specimen/Specimens Removed: Gallbladder Estimated Blood Loss: EBL {In ML}: 20 Blood Products Given: N/A Drains Used: No Drains Post-Op Condition: Good Date of Surgery/Procedure: 06/25/18 Time of Surgery/Procedure: 15:13
[2018-06-25] MEDS ORDERED: Dexamethasone 4 mg/1 ml IVP PRN (15:24)
[2018-06-25 17:21] VITALS: RESP 20
[2018-06-25] MEDS: HYDROmorphone 0.5 mg/0.5 ml ISec IVP PRN (21:00)
[2018-06-26] MEDS: Piperacill/Tazo 3.375gm in Dex 3.375 GM/50 ML BAG IVPB SCH ×4 (01:22→14:35)
[2018-06-26] MEDS: Albuterol-Ipratrop 3 mg / 0.5 (3 ml) UD INH SCH (01:46)
[2018-06-26] MEDS: HYDROmorphone 0.5 mg/0.5 ml ISec IVP PRN (03:03)
[2018-06-26] MEDS: Sodium Chloride 0.9% 1,000 ML IV SCH ×2 (05:30→11:33)
[2018-06-26] MEDS ORDERED: Oxycodone/Acetaminophen 5/325 mg Tab PO PRN (06:52)
[2018-06-26 07:04] LABS: BASO % 0.3 % (0.0-2.0); EOS # 0.1 K/uL (0.0-0.7); HEMOGLOBIN 10.2 g/dL (11.0-16.0); LYMPH # 1.2 K/uL (1.0-4.3); LYMPH % 10.8 % (20.0-40.0); MEAN CELL VOLUME 80.2 fL (81.0-99.0); MEAN CORPUSCULAR HEMOGLOBIN 26.3 pg (27.0-31.0); MEAN CORPUSCULAR HGB CONC 32.8 g/dL (33.0-37.0); MEAN PLATELET VOLUME 7.9 fL (7.2-11.7); MONO # 0.8 K/uL (0.0-0.8); MONO % 7.4 % (0.0-10.0); NEUT # 8.6 K/uL (1.8-7.0); NEUT % 80.5 % (50.0-75.0); RBC 3.87 Mil/uL (3.80-5.20); RED CELL DISTRIBUTION WIDTH 14.5 % (11.5-14.5); WHITE BLOOD COUNT 10.7 K/uL (4.8-10.8)
[2018-06-26 07:15] LABS: ALBUMIN 3.4 g/dL (3.5-5.0); ALT/SGPT 75 U/L (9-52); AST/SGOT 49 U/L (14-36); BLOOD UREA NITROGEN 6 mg/dL (7-17); CALCIUM 8.4 mg/dl (8.6-10.4); GFR NON-AFRICAN AMERICAN > 60
--- NOTE | 2018-06-26 07:36 | CP.PCM.PN ---
Subjective - Date & Time of Evaluation Date of Evaluation: 06/26/18 Time of Evaluation: 07:33 - Subjective Subjective: Surgery: Dr. Pierce Pt seen and examined. No acute overnight events. s/p lap chang yest; POD#1. States she feels well and abdominal pain is well controlled at this time. Pt tolerated liquids yesterday. Denies nausea/vomiting, fevers/chills. Objective - Vital Signs/Intake and Output Vital Signs (last 24 hours): Temp Pulse Resp BP Pulse Ox 98.4 F 77 20 107/62 98 06/25/18 23:25 06/25/18 23:25 06/25/18 23:25 06/25/18 23:25 06/25/18 23:25 Intake and Output: 06/26/18 06/26/18 06:59 18:59 Intake Total 800 Balance 800 - Medications Medications: Current Medications Albuterol/Ipratropium (Duoneb 3 Mg/0.5 Mg (3 Ml) Ud) 3 ml INH RQ6 [facility] Last Admin: 06/26/18 01:46 Dose: Not Given Docusate Sodium (Colace) 100 mg PO BID [facility] Sodium Chloride (Sodium Chloride 0.9%) 1,000 mls @ 50 mls/hr IV .Q20H [facility] Last Admin: 06/25/18 09:45 Dose: Not Given Piperacillin Sod/Tazobactam Sod (Zosyn 3.375 Gm Iv Premix) 3.375 gm in 50 mls @ 100 mls/hr IVPB Q6H [facility]; Protocol Last Admin: 06/26/18 01:22 Dose: 100 mls/hr Lactobacillus Acidophilus (Bacid Acidophilus) 1 cap PO BID [facility] Last Admin: 06/25/18 18:57 Dose: 1 cap Ondansetron HCl (Zofran Tab) 4 mg PO Q6H PRN PRN Reason: Nausea/Vomiting Last Admin: 06/26/18 03:30 Dose: 4 mg Oxycodone/Acetaminophen (Percocet 5/325 Mg Tab) 1 tab PO Q4H PRN PRN Reason: Pain, moderate (4-7) Stop: 06/28/18 15:11 Oxycodone/Acetaminophen (Percocet 5/325 Mg Tab) 2 tab PO Q4H PRN PRN Reason: Pain, severe (8-10) Stop: 06/29/18 06:53 Pantoprazole Sodium (Protonix Inj) 40 mg IVP DAILY [facility] Last Admin: 06/25/18 09:38 Dose: 40 mg - Labs Labs: 06/26/18 06:53 06/26/18 06:53 PT 12.6 SECONDS (9.7-12.2) H 06/22/18 19:36 INR 1.2 06/22/18 19:36 APTT 27 SECONDS (21-34) 06/22/18 19:36 - Constitutional Appears: Well, No Acute Distress - Head Exam Head Exam: ATRAUMATIC, NORMOCEPHALIC - Eye Exam Eye Exam: Normal appearance - ENT Exam ENT Exam: Mucous Membranes Moist - Respiratory Exam Respiratory Exam: NORMAL BREATHING PATTERN - Cardiovascular Exam Cardiovascular Exam: RRR - GI/Abdominal Exam GI & Abdominal Exam: Soft, Tenderness (around incision sites; C/D/I with dermabond in place ). absent: Distended, Guarding, Rebound - Neurological Exam Neurological Exam: Alert, Awake, Oriented x3 - Skin Skin Exam: Dry, Warm Assessment and Plan - Assessment and Plan (Free Text) Assessment: 38F s/p lap chang for gallstone pancreatitis; POD#1 Plan: - ok to DC home if tolerating regular breakfast - f/u with Dr. Pierce in 1 week - No heavy lifting > 15lbs for 4-6 weeks - d/w Dr. Stan Quan
--- NOTE | 2018-06-26 07:41 | CP.PCM.DIS ---
Provider - Provider Date of Admission: 06/24/18 15:18 Attending physician: Marc Fontanez MD Primary care physician: none Consults: 06/22/18 12:50 General Surgery Consult Stat Comment: Consulting Provider: Cristal Pierce Consulting Physician: Cristal Pierce Reason for Consult: pancreatitis, cholecystitis Time Spent in preparation of Discharge (in minutes): 45 Diagnosis - Discharge Diagnosis (1) Gallstone pancreatitis Status: Acute Priority: High (2) Acute cholecystitis Status: Acute Priority: High (3) Choledocholithiasis Status: Acute Priority: High (4) S/P laparoscopic cholecystectomy Status: Acute Priority: High (5) Morbid obesity Status: Chronic Priority: Medium (6) Glucose intolerance (impaired glucose tolerance) Status: Chronic Priority: Low Hospital Course - Lab Results Lab Results: Most Recent Lab Values WBC 10.7 K/uL (4.8-10.8) 06/26/18 06:53 RBC 3.87 Mil/uL (3.80-5.20) 06/26/18 06:53 Hgb 10.2 g/dL (11.0-16.0) L 06/26/18 06:53 Hct 31.0 % (34.0-47.0) L 06/26/18 06:53 MCV 80.2 fL (81.0-99.0) L 06/26/18 06:53 MCH 26.3 pg (27.0-31.0) L 06/26/18 06:53 MCHC 32.8 g/dL (33.0-37.0) L 06/26/18 06:53 RDW 14.5 % (11.5-14.5) 06/26/18 06:53 Plt Count 233 K/uL (130-400) 06/26/18 06:53 MPV 7.9 fL (7.2-11.7) 06/26/18 06:53 Neut % (Auto) 80.5 % (50.0-75.0) H 06/26/18 06:53 Lymph % (Auto) 10.8 % (20.0-40.0) L 06/26/18 06:53 Wright % (Auto) 7.4 % (0.0-10.0) 06/26/18 06:53 Eos % (Auto) 1.0 % (0.0-4.0) 06/26/18 06:53 Baso % (Auto) 0.3 % (0.0-2.0) 06/26/18 06:53 Neut # (Auto) 8.6 K/uL (1.8-7.0) H 06/26/18 06:53 Lymph # (Auto) 1.2 K/uL (1.0-4.3) 06/26/18 06:53 Wright # (Auto) 0.8 K/uL (0.0-0.8) 06/26/18 06:53 Eos # (Auto) 0.1 K/uL (0.0-0.7) 06/26/18 06:53 Baso # (Auto) 0.0 K/uL (0.0-0.2) 06/26/18 06:53 PT 12.6 SECONDS (9.7-12.2) H 06/22/18 19:36 INR 1.2 06/22/18 19:36 APTT 27 SECONDS (21-34) 06/22/18 19:36 Puncture Site Lr 06/24/18 13:55 pCO2 25 mm/Hg (35-45) L 06/24/18 13:55 pO2 68 mm/Hg (80-100) L 06/24/18 13:55 HCO3 18.8 mmol/L (21-28) L 06/24/18 13:55 ABG pH 7.41 (7.35-7.45) 06/24/18 13:55 ABG Total CO2 16.6 mmol/L (22-28) L 06/24/18 13:55 ABG O2 Saturation 98.2 % (95-98) H 06/24/18 13:55 ABG Base Excess -7.8 mmol/L (-2.0-3.0) L 06/24/18 13:55 ABG Hemoglobin 8.5 g/dL (11.7-17.4) L 06/24/18 13:55 ABG Carboxyhemoglobin 2.4 % (0.5-1.5) H 06/24/18 13:55 POC ABG HHb (Measured) 1.7 % (0.0-5.0) 06/24/18 13:55 ABG Methemoglobin 1.0 % (0.0-3.0) 06/24/18 13:55 Yair Test P 06/24/18 13:55 Hgb O2 Saturation 94.9 % (95.0-98.0) L 06/24/18 13:55 Sodium 133 mmol/L (132-148) 06/26/18 06:53 Potassium 3.9 mmol/L (3.6-5.2) 06/26/18 06:53 Chloride 103 mmol/L (98-107) 06/26/18 06:53 Carbon Dioxide 23 mmol/L (22-30) 06/26/18 06:53 Anion Gap 11 (10-20) 06/26/18 06:53 BUN 6 mg/dL (7-17) L 06/26/18 06:53 Creatinine 0.5 mg/dL (0.7-1.2) L 06/26/18 06:53 Est GFR ( Amer) > 60 06/26/18 06:53 Est GFR (Non-Af Amer) > 60 06/26/18 06:53 Random Glucose 98 mg/dL (65-105) 06/26/18 06:53 Hemoglobin A1c 5.8 % (4.2-6.5) 06/23/18 14:00 Calcium 8.4 mg/dl (8.6-10.4) L 06/26/18 06:53 Phosphorus 3.0 mg/dL (2.5-4.5) 06/26/18 06:53 Magnesium 1.8 mg/dL (1.6-2.3) 06/26/18 06:53 Total Bilirubin 0.8 mg/dL (0.2-1.3) 06/26/18 06:53 AST 49 U/L (14-36) H D 06/26/18 06:53 ALT 75 U/L (9-52) H 06/26/18 06:53 Alkaline Phosphatase 142 U/L (38-126) H 06/26/18 06:53 Lactate Dehydrogenase 558 U/L (313-618) 06/25/18 08:18 Total Protein 6.8 g/dL (6.3-8.3) 06/26/18 06:53 Albumin 3.4 g/dL (3.5-5.0) L 06/26/18 06:53 Globulin 3.4 gm/dL (2.2-3.9) 06/26/18 06:53 Albumin/Globulin Ratio 1.0 (1.0-2.1) 06/26/18 06:53 Triglycerides 51 mg/dL (0-149) 06/23/18 14:00 Cholesterol 183 mg/dL (0-199) 06/23/18 14:00 LDL Cholesterol Direct 85 mg/dL (0-129) 06/23/18 14:00 HDL Cholesterol 79 mg/dL (30-70) H 06/23/18 14:00 Lipase 54705 U/L (23-300) H 06/22/18 11:10 Free T4 1.21 ng/dL (0.78-2.19) 06/23/18 14:00 TSH 3rd Generation 1.21 mIU/L (0.46-4.68) 06/23/18 14:00 Urine Color Ruma (YELLOW) 06/22/18 12:17 Urine Clarity Clear (Clear) 06/22/18 12:17 Urine pH 5.0 (5.0-8.0) 06/22/18 12:17 Ur Specific [place] 1.016 (1.003-1.030) 06/22/18 12:17 Urine Protein Negative mg/dL (NEGATIVE) 06/22/18 12:17 Urine Glucose (UA) Normal mg/dL (Normal) 06/22/18 12:17 Urine Ketones Negative mg/dL (NEGATIVE) 06/22/18 12:17 Urine Blood Negative (NEGATIVE) 06/22/18 12:17 Urine Nitrate Negative (NEGATIVE) 06/22/18 12:17 Urine Bilirubin Negative (NEGATIVE) 06/22/18 12:17 Urine Urobilinogen 4.0 mg/dL (0.2-1.0) H 06/22/18 12:17 Ur Leukocyte Esterase Neg Lesli/uL (Negative) 06/22/18 12:17 Urine WBC (Auto) 4 /hpf (0-5) 06/22/18 12:17 Urine RBC (Auto) 1 /hpf (0-3) 06/22/18 12:17 Ur Squamous Epith Cells 10 /hpf (0-5) H 06/22/18 12:17 Urine Bacteria Rare (<OCC) 06/22/18 12:17 Urine HCG, Qual Negative (NEGATIVE) 06/25/18 06:50 - Hospital Course Hospital Course: Patient is a 38 year old female with no past medical history, who presents to the ED with complaints of epigastric pain that started 4 days ago. Patient reports that the pain started for her right lower back/flank area/ RUQ radiating to the epigastric region. Patient describes that pain as a 8/10 sharp, pressure- like pain that is exacerbated with belching and greasy or fried food and mildly alleviated with vomiting. Patient states that she took Gas-X last week , which provided no relief. Patient admits to associated symptom of non-bilious, non-bloody vomit 3-4x per day for the past 3-4 days as well as chills and subjective fever that started yesterday. Patient admits to mild SOB and dizziness but denies chest pain, palpitations, diarrhea, hematochezia or urinary symptoms and recent travels. Imaging revealed gallstone pancreatitis, cholecystitis, and choledocolithiasis: Abd US: Cholelithiasis and sludge in the gallbladder with associated positive sonographic Castellon's sign. Normal wall thickness. No gross wall edema. Hepatomegaly with increased echogenicity of the hepatic parenchymal cortex suggestive for fatty infiltration versus hepatic parenchymal disease. Dilated common bile duct measuring up to 1.[address] A/P: Prominent liver with diffuse fatty infiltration. Distended gallbladder with possible sludge. Prominently thickened and heterogeneous pancreas with adjacent peripancreatic fat stranding suggestive for acute pancreatitis. Right kidney: 4 millimeter lower pole nonobstructive calculus. Left Kidney: 3 millimeter upper pole nonobstructive calculus. Mild fullness of the left renal collecting system. Prominence of the left adnexa measuring up to 4.4 centimeters. MRCP: CBD 1.1 cm, no filling defect, cholelithiasis Lipase, LDH, and total bilirubin were elevated. GI and surgery were consulted. Patient was placed NPO and placed on fluids and Zosyn. Patient had lap cholecystectomy on 06/25/18 without complications. Lipid panel within normal limits. A1c 5.8 (impaired glucose tolerance) and BMI>51 (morbid obesity). Patient was counseled on diet and exercise for weight loss. Upon discharge, patient was tolerating PO diet. She was ambulating and passing gas. Her pain was well controlled. Surgical sites intact. Vitals and labs stable- LFTs and Tbili normalized. Patient remained afebrile and without leukocytosis. Discharge Exam - Head Exam Head Exam: ATRAUMATIC, NORMOCEPHALIC - Eye Exam Eye Exam: EOMI, Normal appearance - ENT Exam ENT Exam: Mucous Membranes Moist - Neck Exam Neck exam: Normal Inspection - Respiratory Exam Respiratory Exam: Clear to PA & Lateral, NORMAL BREATHING PATTERN, UNREMARKABLE - Cardiovascular Exam Cardiovascular Exam: RRR, +S1, +S2 - GI/Abdominal Exam GI & Abdominal Exam: Soft, Tenderness (mild arund incision sites). absent: Distended Additional comments: obese surgical incisions well approximated with glue- no signs of bleeding or infection - Extremities Exam Extremities exam: normal inspection - Back Exam Back exam: NORMAL INSPECTION - Neurological Exam Neurological exam: Alert, CN II-XII Intact, Normal Gait, Oriented x3 - Psychiatric Exam Psychiatric exam: Normal Affect, Normal Mood - Skin Skin Exam: Dry, Normal Color, Warm Discharge Plan - Follow Up Plan Condition: IMPROVED Disposition: HOME/ ROUTINE Patient education suggested?: Yes Additional Instructions: Establish care at the [facility] at [facility]. You have an appointment on July 08 at 1:00 PM- please arrive by 12:30 in order to get registered. This will serve as your primary care provider. Call [phone] if you need assistance. Follow-up with surgery, Dr. Pierce, in 1 week. No heavy lifting > 15lbs for 4-6 weeks If symptoms recur or worsen, return to the nearest emergency department. Referrals: [facility] at [facility] [Outside] Cristal Pierce MD [Staff Provider] -
[2018-06-26 07:45] VITALS: BP 103/66; PULSE 86; TEMP 98.8; O2SAT 95
[2018-06-26] MEDS: Lactobacillus Acidophilus 500 MU Cap PO SCH (11:19)
[2018-06-26] MEDS ORDERED: POLYETHYLENE GLYCOL 3350 17 GM/Dose PACKET PO SCH (13:00)
--- NOTE | 2018-06-26 23:08 | OP ---
PROCEDURE DATE: 06/25/2018 PREOPERATIVE DIAGNOSES: Cholelithiasis, status post gallstone pancreatitis. POSTOPERATIVE DIAGNOSES: Cholelithiasis status post gallstone pancreatitis. PROCEDURE: Laparoscopic cholecystectomy. SURGEON: Cristal Pierce MD [employer] OPERATOR: Yolande Quan DO TYPE OF ANESTHESIA: General. ANESTHESIA ADMINISTERED BY: Estela Quintanilla CRNA and Neda Cook MD ESTIMATED BLOOD LOSS: 20 mL. DESCRIPTION OF PROCEDURE: With the patient in the supine position under adequate general anesthesia, the abdomen was prepped and draped in the usual sterile manner. Veress needle puncture was performed at the umbilicus with insufflation to 15 cm water pressure of CO2 and a 10 mm laparoscopic trocar was inserted via a supraumbilical incision. Under direct vision, additional trocars were placed in the epigastrium and right costal margin. The gallbladder was visualized. It was softly distended and there appeared to be mild thickening of the gallbladder wall. The gallbladder fundus was grasped and elevated. The mildly distended duodenum and pancreas were gently retracted downwards to expose the area of the infundibulum and inflammatory thickening was pealed away to expose the area of the cystic duct. The omental adhesions were completely taken down and it was noted that the major cystic artery appeared to be traveling along the right lateral aspect of the gallbladder, and after carefully confirming that this was entering only into the gallbladder, this was triply clipped and divided. The cystic duct was then visualized, there were noted to be small stones within the distal portion of the cystic duct and these were milked backward into the gallbladder allowing the cystic duct to be completely dissected and the cystic duct was then triply clipped and divided. The gallbladder itself was then dissected free of the liver bed using electrocautery. The liver bed was inspected for hemostasis and the dissection was completed. The gallbladder was placed in a specimen retrieval bag and removed via the umbilical port site. The right upper quadrant was irrigated and suctioned and the pneumoperitoneum was released and the trocars were removed. The umbilical port site was closed with a [id number] suture of 0 Vicryl and all incisions closed with 4-0 Monocryl and Dermabond. The patient tolerated the procedure well and transferred to recovery room in stable condition. Cristal Pierce MD [facility] # [id number]
== END 2018-06-26 15:28 | disposition home or self-care (01) | DRG 263 ==
LOC: C.ER 08:26 → C.9E 15:12 → C.5S 06-23 10:24 → C.3T 06-23 21:40 → OBSVTOIN 06-24 15:18
PROVIDERS: ADMIT Family Medicine; ATTEND Family Medicine
PROC: 0FT44ZZ Resection of Gallbladder, Percutaneous Endoscopic Approach (ICD-10-PCS; principal; 2018-06-25 12:30)
DX: K80.12 Calculus of gallbladder with acute and chronic cholecystitis without obstruction (principal); K85.10 Biliary acute pancreatitis without necrosis or infection; K76.0 Fatty (change of) liver, not elsewhere classified; Z68.43 Body mass index [BMI] 50.0-59.9, adult; E66.01 Morbid (severe) obesity due to excess calories; R73.02 Impaired glucose tolerance (oral); R09.02 Hypoxemia; Z80.3 Family history of malignant neoplasm of breast

== ENCOUNTER 2018-09-21 07:43 | Emergency (ER) | payer OTHER ==
[2018-09-21] MEDS ORDERED: Sodium Chloride 0.9% 1,000 ML IV STA (08:00)
--- NOTE | 2018-09-21 08:03 | C.PDOC ---
History Of Present Illness 38 y/o F c PMHx cholecystectomy 3 months ago p/w L flank pain, characterized as sharp, constant, worse with palpation, associated with increased urinary frequency. Reports chills. Denies fever, vomiting, dyspnea. Time Seen by Provider: 09/21/18 07:57 Chief Complaint (Nursing): Female Genitourinary Past Medical History Vital Signs: Last Vital Signs Temp Pulse 77 09/21/18 07:50 Resp 18 09/21/18 07:50 BP 133/84 09/21/18 07:50 Pulse Ox 97 09/21/18 07:50 - Medical History PMH: Denies: Chronic Kidney Disease Surgical History: Cholecystectomy - [facility] Procedures RESECTION OF GALLBLADDER, PERCUTANEOUS ENDOSCOPIC APPROACH (06/24/18) Family History: States: Unknown Family Hx - Social History Hx Tobacco Use: No Hx Alcohol Use: No Hx Substance Use: No - Immunization History Hx Tetanus Toxoid Vaccination: No Hx Influenza Vaccination: No Hx Pneumococcal Vaccination: No Review Of Systems Except As Marked, All Systems Reviewed And Found Negative. Constitutional: Negative for: Fever Respiratory: Negative for: Shortness of Breath Physical Exam - Physical Exam Additional Physical Exam Comments: Constitutional: No acute distress. Head: Normocephalic. Atraumatic. Eyes: PERRL. ENT: Moist mucous membranes. Neck: Supple. Cardiovascular: Regular rate. Radial pulse 2+ bilaterally. Chest: No tenderness. Respiratory: Clear to auscultation bilaterally. GI: Soft. Suprapubic tenderness. Nondistended. Back: L CVA tenderness Musculoskeletal: No tenderness or swelling of extremities. Skin: No rash. Neurologic: Alert, no focal deficit. ED Course And Treatment - Laboratory Results Result Diagrams: 09/21/18 08:41 09/21/18 08:41 O2 Sat by Pulse Oximetry: 97 (RA) Pulse Ox Interpretation: Normal Medical Decision Making Medical Decision Making: Differential includes but not limited to UTI/pyelonephritis, kidney stone, MSK pain. Plan: Confirm UTI with UA, send culture, treat with antibiotics appropriate for pyelo. UA returned unremarkable for UTI. Calcium oxalate crystals many, sent for CT which shows stone. F/u Urology, copy of CT report given for further follow up of findings. Disposition - Disposition Referrals: Rober Kaur MD [Staff Provider] - Disposition: HOME/ ROUTINE Disposition Time: 11:18 Condition: GOOD Additional Instructions: FINDINGS: LOWER THORAX: Unremarkable. LIVER: Unremarkable. No gross lesion or ductal dilatation. GALLBLADDER AND BILE DUCTS: Status post cholecystectomy PANCREAS: Unremarkable. No gross lesion or ductal dilatation. SPLEEN: Unremarkable. ADRENALS: Unremarkable. No mass. KIDNEYS AND URETERS: 2 mm nonobstructing right lower pole renal calculus. 3 mm nonobstructing left upper pole renal calculus. Very mild left hydroureteronephrosis. 2 mm calculus at left ureteral orifice. Evaluation limited due to lack of bladder distention. Suspected obstructing calculus. No renal mass. No right hydronephrosis. VASCULATURE: Unremarkable. No aortic aneurysm. No aortic atherosclerotic calcification or mural plaque present. BOWEL: Unremarkable. No obstruction. No gross mural thickening. APPENDIX: Unremarkable. Normal appendix. PERITONEUM: Unremarkable. No free fluid. No free air. LYMPH NODES: Unremarkable. No enlarged lymph nodes. BLADDER: Nondistended REPRODUCTIVE: Normal uterus. Right adnexal cystic structure, 5.7 cm. This was not evident on previous examination, at which time there was a cystic left adnexal structure. Likely ovarian cyst. Correlate with pelvic ultrasound examination, particularly in light of size. BONES: No acute fracture. OTHER FINDINGS: None. IMPRESSION: Possible 2 mm obstructing calculus at left ureteral orifice. Evaluation limited. Very mild left hydroureteronephrosis. Bilateral nonobstructing small renal calculi. 5.7 cm cystic right adnexal mass. Recommend correlation with transvaginal pelvic ultrasound examination. No other acute abnormality. Prescriptions: Ibuprofen [Motrin] 600 mg PO Q6 #25 tab Ondansetron ODT [Zofran ODT] 4 mg PO Q8 #12 odt Tamsulosin [Flomax] 0.4 mg PO DAILY #5 cap Instructions: Kidney Stones in Adults Forms: [facility] (K[place]akh) - Clinical Impression Clinical Impression: Kidney stone - Scribe Statement The provider has reviewed the documentation as recorded by the Scribe Sophy Roach
[2018-09-21] MEDS ORDERED: Sodium Chloride 0.9% 1,000 ML ONE (08:19)
[2018-09-21 08:47] LABS: BASO # 0.1 K/uL (0.0-0.2); BASO % 0.9 % (0.0-2.0); EOS # 0.1 K/uL (0.0-0.7); EOS % 1.7 % (0.0-4.0); HEMOGLOBIN 11.6 g/dL (11.0-16.0); LYMPH # 1.2 K/uL (1.0-4.3); LYMPH % 16.6 % (20.0-40.0); MEAN CELL VOLUME 80.5 fL (81.0-99.0); MEAN CORPUSCULAR HEMOGLOBIN 26.1 pg (27.0-31.0); MEAN CORPUSCULAR HGB CONC 32.5 g/dL (33.0-37.0); MEAN PLATELET VOLUME 8.1 fL (7.2-11.7); MONO # 0.5 K/uL (0.0-0.8); MONO % 7.8 % (0.0-10.0); NEUT # 5.1 K/uL (1.8-7.0); NRBC % 0.1 % (0.0-2.0); RBC 4.43 Mil/uL (3.80-5.20); RED CELL DISTRIBUTION WIDTH 15.1 % (11.5-14.5)
[2018-09-21 08:59] LABS: ALB/GLOB RATIO 1.1 (1.0-2.1); ALBUMIN 4.1 g/dL (3.5-5.0); ALT/SGPT 38 U/L (9-52); AST/SGOT 26 U/L (14-36); BLOOD UREA NITROGEN 14 mg/dL (7-17); CALCIUM 9.4 mg/dl (8.6-10.4); GFR NON-AFRICAN AMERICAN > 60
[2018-09-21 09:47] LABS: URINE BILIRUBIN NEGATIVE (NEGATIVE); URINE BLOOD NEGATIVE (NEGATIVE); URINE CLARITY Hazy (Clear); URINE COLOR YELLOW (YELLOW); URINE GLUCOSE (UA) NEGATIVE (Normal); URINE PROTEIN 30 mg/dL (NEGATIVE)
[2018-09-21 09:48] LABS: HCG,QUALITATIVE URINE NEGATIVE (NEGATIVE); URINE LEUKOCYTE ESTERASE NEGATIVE Leu/uL (Negative); URINE UROBILINOGEN 0.2 mg/dL (0.2-1.0)
[2018-09-21 09:51] LABS: SQUAMOUS EPITHIAL 4 /hpf (0-5); URINE BACTERIA RARE (<OCC); URINE CALCIUM OXALATE CRYSTALS MANY /hpf (<OCC)
--- NOTE | 2018-09-21 11:10 | CT ---
Date of service: 09/21/2018 PROCEDURE: CT Abdomen and Pelvis without intravenous contrast HISTORY: flank pain COMPARISON: 06/22/2018 TECHNIQUE: Without contrast.. Contrast dose: 0 Radiation dose: Total exam DLP = 1113.94 mGy-cm. This CT exam was performed using one or more of the following dose reduction techniques: Automated exposure control, adjustment of the mA and/or kV according to patient size, and/or use of iterative reconstruction technique. FINDINGS: LOWER THORAX: Unremarkable. LIVER: Unremarkable. No gross lesion or ductal dilatation. GALLBLADDER AND BILE DUCTS: Status post cholecystectomy PANCREAS: Unremarkable. No gross lesion or ductal dilatation. SPLEEN: Unremarkable. ADRENALS: Unremarkable. No mass. KIDNEYS AND URETERS: 2 mm nonobstructing right lower pole renal calculus. 3 mm nonobstructing left upper pole renal calculus. Very mild left hydroureteronephrosis. 2 mm calculus at left ureteral orifice. Evaluation limited due to lack of bladder distention. Suspected obstructing calculus. No renal mass. No right hydronephrosis. VASCULATURE: Unremarkable. No aortic aneurysm. No aortic atherosclerotic calcification or mural plaque present. BOWEL: Unremarkable. No obstruction. No gross mural thickening. APPENDIX: Unremarkable. Normal appendix. PERITONEUM: Unremarkable. No free fluid. No free air. LYMPH NODES: Unremarkable. No enlarged lymph nodes. BLADDER: Nondistended REPRODUCTIVE: Normal uterus. Right adnexal cystic structure, 5.7 cm. This was not evident on previous examination, at which time there was a cystic left adnexal structure. Likely ovarian cyst. Correlate with pelvic ultrasound examination, particularly in light of size. BONES: No acute fracture. OTHER FINDINGS: None. IMPRESSION: Possible 2 mm obstructing calculus at left ureteral orifice. Evaluation limited. Very mild left hydroureteronephrosis. Bilateral nonobstructing small renal calculi. 5.7 cm cystic right adnexal mass. Recommend correlation with transvaginal pelvic ultrasound examination. No other acute abnormality.
[2018-09-21 11:52] VITALS: TEMP 97.6
[2018-09-21] MEDS ORDERED: Oxycodone/Acetaminophen 5/325 mg Tab PO STA (11:57)
[2018-09-21] MEDS ORDERED: Oxycodone/Acetaminophen 5/325 mg Tab ONE (12:06)
[2018-09-21 12:15] VITALS: BP 134/86; PULSE 71; RESP 20; O2SAT 98
== END 2018-09-21 12:30 | disposition home or self-care (01) ==
LOC: C.ER 07:43
DX: N13.2 Hydronephrosis with renal and ureteral calculous obstruction (principal)
CPT/HCPCS: 74176; 80053; 81001; 84703; 85025; 87086; 96361; 96374; 99284; J1885; J7030